=== PATIENT | female | born 1940 | race Caucasian/White ===

== ENCOUNTER 2020-12-29 16:17 | Inpatient (IN) | payer MEDICARE, MEDICAID, SELFPAY ==
[2020-12-29] VITALS (8 sets, daily range): BP systolic 102–132; BP diastolic 60–77; PULSE 83–95; RESP 18–26; TEMP 36.9–37; O2SAT 91–97; BMI 25.0; BMI 22.1
--- NOTE | 2020-12-29 16:32 | ED_ITS ---
HPI - SOB/Dyspnea General: Chief Complaint: COVID symptoms Stated Complaint: LOW O2 SAT, COVID Time Seen by Provider: 12/29/20 16:32 History of Present Illness: HPI Narrative: Ms. Tejeda is a 80-year-old lady with, per chart review, history of diabetes and dementia who presents to the emergency department due to respiratory distress. The patient does not provide meaningful supplemental history and history is otherwise limited due to patient's mental status. Review of Systems Narrative: Unable to obtain due to altered mental status [facility] ED PFSH: Medical History (Updated 12/30/20 @ 02:15 by Lauren Stafford MD) Anxiety Atrial fibrillation Congestive heart failure Dementia Diabetes Hypercholesterolemia Major depressive disorder Malaria Polymyalgia rheumatica Postherpetic polyneuropathy Surgical History (Updated 12/30/20 @ 02:34 by Lauren Stafford MD) History of cholecystectomy History of hysterectomy History of tubal ligation Social History (Updated 12/30/20 @ 02:00 by Lauren Stafford MD) Housing: Custodial Marital status: / Marital status details: of cancer 11/2020 Physical Exam Narrative: EXAM NARRATIVE: GENERAL/CONSTITUTIONAL -moderately ill-appearing. No acute distress. Eyes - PERRL, no conjunctival injection ENMT - Atraumatic external nose and ears. Moist mucous membranes NECK - supple. trachea midline CARDIOVASCULAR - regular rate and rhythm. Peripheral pulses 2+ and equal RESPIRATORY -coarse breath sounds to auscultation bilaterally. No retractions or accessory muscle use. ABDOMEN/GI - Nontender to deep palpation/Nondistended. MSK - Extremities without obvious deformity or tenderness to palpation SKIN -pale, Dry NEURO -moves all extremities spontaneously. Unable to perform full neurologic exam given baseline mental status. PSYCH -impaired cognition and memory. Course ED course: - Patient was seen and evaluated by me at bedside - Patient placed on cardiac monitors, IV access obtained - Initial evaluation notable for ill appearance, altered mental status - Labs notable for mild leukocytosis, hematologic or metabolic abnormality to explain the patient's symptoms. Procalcitonin elevated. Pneumonia treatment ordered - Imaging notable for no intracranial hemorrhage or mass. Patchy infiltrate noted on chest x-ray. - Upon serial reexamination after treatment the patient was similar - Based on patient history, evaluation, labs, and imaging as interpreted the most likely cause of the patient's condition is bacterial pneumonia - The results of ED evaluation were discussed with the patient including plan for admission due to requirement for level of care not available if discharged to prevent significant worsening/deterioration. -Hospitalist service consulted and agreed to admit the patient. - Patient was admitted without further deterioration or significant events. Vital Signs: Vital signs: Vital Signs Temperature 98.1 F 12/31/20 04:00 Pulse Rate 60 12/31/20 04:00 Respiratory Rate 20 H 12/31/20 04:00 Blood Pressure 118/77 12/31/20 04:00 Pulse Oximetry 92 12/31/20 04:00 MDM - SOB/Dyspnea Medical Records: Attestation: I reviewed the patient's medical records. Lab Data: Attestation: I reviewed the patient's lab results. Labs: Lab Results 12/29/20 12/29/20 12/29/20 Range/Units 16:54 17:00 17:00 WBC 11.2 H (4.0-10.0) 10^3/ uL RBC 4.18 (4.1-5.3) 10^6/u L Hgb 12.2 (11.5-15.3) g/dL Hct 36.7 L (37.0-47.0) % MCV 87.8 (81-99) fl MCH 29.2 (28.0-34.0) pg MCHC 33.2 (30.0-36.0) g/dL RDW 16.3 H (12.1-15.1) % Plt Count 237 (130-400) 10^3/c mm MPV 11.8 H (7.4-10.4) fL Neut % (Auto) 85.4 % Lymph % (Auto) 10.4 % [place] % (Auto) 3.5 % Eos % (Auto) 0.1 % Baso % (Auto) 0.1 % Neut # (Auto) 9.54 H (1.8-7.7) 10^3/u L Lymph # (Auto) 1.2 (0.8-4.8) 10^3/u L [place] # (Auto) 0.4 (0.2-0.9) 10^3/u L Eos # (Auto) 0.0 (0.0-0.8) 10^3/u L Baso # (Auto) 0.0 (0.0-0.1) 10^3/u L Nucleated RBC % (a uto) 0 % Nucleated RBCs # 0.0 /100WBC Specimen Type Sample Site ABG pH (7.35-7.45) ABG pCO2 (35-45) mmHg ABG pO2 (80.0-100.0) mmH g ABG HCO3 (22-26) mmol/L ABG Base Excess (-2.0-2.0) mmol/ L Cesar Test Hematocrit (37-47) % Hgb O2 Saturation (95-100) % Carboxyhemoglobin (0.4-20.1) %THgb Methemoglobin (0.4-1.5) % Total Hemoglobin (12-16) g/dL O2 Delivery Device O2 Liters/Min % Flexo Operator ID Sodium 141 (136-145) mmol/L Potassium 4.3 (3.5-5.1) mmol/L Chloride 103 (98-107) mmol/L Carbon Dioxide 24 (22-29) mmol/L Anion Gap 18.3 (5-19) BUN 44 H (8-23) mg/dL Creatinine 1.0 H (0.5-0.9) mg/dL GFR Calculation Not Reportable Glucose 103 (65-115) mg/dL POC Glucose 195 H (70-110) mg/dL Calculated Osmolal ity 303 H (285-295) mOsm/k g Lactic Acid (0.5-2.2) mmol/L Calcium 8.2 L (8.5-10.5) mg/dL Total Bilirubin 0.6 (0.15-1.2) mg/dL AST 33 H (0-32) U/L ALT 14 (0-33) U/L Alkaline Phosphata se 85 (35-105) IU/L Troponin T Baselin e (0-10) ng/L Troponin T 120 Min [place] (0-10) ng/L Delta Troponin T (0-10) ABS# C-Reactive Protein (0.0-4.9) mg/L NT-Pro-B Natriuret Pep 08613 H (0-450) pg/mL Total Protein 5.9 L (6.6-8.7) g/dL Albumin 3.1 L (3.5-5.2) g/dL Globulin 2.8 (1.3-4.6) g/dL Procalcitonin (0-0.5) ng/mL Nasal/Oral COVID-1 9 PCR SARS-CoV-2 Ag (Rap id) (Negative) 12/29/20 12/29/20 12/29/20 Range/Units 17:00 17:00 17:00 WBC (4.0-10.0) 10^3/ uL RBC (4.1-5.3) 10^6/u L Hgb (11.5-15.3) g/dL Hct (37.0-47.0) % MCV (81-99) fl MCH (28.0-34.0) pg MCHC (30.0-36.0) g/dL RDW (12.1-15.1) % Plt Count (130-400) 10^3/c mm MPV (7.4-10.4) fL Neut % (Auto) % Lymph % (Auto) % [place] % (Auto) % Eos % (Auto) % Baso % (Auto) % Neut # (Auto) (1.8-7.7) 10^3/u L Lymph # (Auto) (0.8-4.8) 10^3/u L [place] # (Auto) (0.2-0.9) 10^3/u L Eos # (Auto) (0.0-0.8) 10^3/u L Baso # (Auto) (0.0-0.1) 10^3/u L Nucleated RBC % (a uto) % Nucleated RBCs # /100WBC Specimen Type Sample Site ABG pH (7.35-7.45) ABG pCO2 (35-45) mmHg ABG pO2 (80.0-100.0) mmH g ABG HCO3 (22-26) mmol/L ABG Base Excess (-2.0-2.0) mmol/ L Cesar Test Hematocrit (37-47) % Hgb O2 Saturation (95-100) % Carboxyhemoglobin (0.4-20.1) %THgb Methemoglobin (0.4-1.5) % Total Hemoglobin (12-16) g/dL O2 Delivery Device O2 Liters/Min % Flexo Operator ID Sodium (136-145) mmol/L Potassium (3.5-5.1) mmol/L Chloride (98-107) mmol/L Carbon Dioxide (22-29) mmol/L Anion Gap (5-19) BUN (8-23) mg/dL Creatinine (0.5-0.9) mg/dL GFR Calculation Glucose (65-115) mg/dL POC Glucose (70-110) mg/dL Calculated Osmolal ity (285-295) mOsm/k g Lactic Acid 1.2 (0.5-2.2) mmol/L Calcium (8.5-10.5) mg/dL Total Bilirubin (0.15-1.2) mg/dL AST (0-32) U/L ALT (0-33) U/L Alkaline Phosphata se (35-105) IU/L Troponin T Baselin e 89 H (0-10) ng/L Troponin T 120 Min [place] (0-10) ng/L Delta Troponin T (0-10) ABS# C-Reactive Protein 199.6 H (0.0-4.9) mg/L NT-Pro-B Natriuret Pep (0-450) pg/mL Total Protein (6.6-8.7) g/dL Albumin (3.5-5.2) g/dL Globulin (1.3-4.6) g/dL Procalcitonin 0.92 H (0-0.5) ng/mL Nasal/Oral COVID-1 9 PCR SARS-CoV-2 Ag (Rap id) (Negative) 12/29/20 12/29/20 12/29/20 Range/Units 17:02 17:02 17:29 WBC (4.0-10.0) 10^3/ uL RBC (4.1-5.3) 10^6/u L Hgb (11.5-15.3) g/dL Hct (37.0-47.0) % MCV (81-99) fl MCH (28.0-34.0) pg MCHC (30.0-36.0) g/dL RDW (12.1-15.1) % Plt Count (130-400) 10^3/c mm MPV (7.4-10.4) fL Neut % (Auto) % Lymph % (Auto) % [place] % (Auto) % Eos % (Auto) % Baso % (Auto) % Neut # (Auto) (1.8-7.7) 10^3/u L Lymph # (Auto) (0.8-4.8) 10^3/u L [place] # (Auto) (0.2-0.9) 10^3/u L Eos # (Auto) (0.0-0.8) 10^3/u L Baso # (Auto) (0.0-0.1) 10^3/u L Nucleated RBC % (a uto) % Nucleated RBCs # /100WBC Specimen Type Arterial Sample Site Radial, left ABG pH 7.48 H (7.35-7.45) ABG pCO2 30.7 L (35-45) mmHg ABG pO2 62.9 L (80.0-100.0) mmH g ABG HCO3 22.6 (22-26) mmol/L ABG Base Excess -0.2 (-2.0-2.0) mmol/ L Cesar Test Pos Hematocrit 37.1 (37-47) % Hgb O2 Saturation 92.0 L (95-100) % Carboxyhemoglobin 0.7 (0.4-20.1) %THgb Methemoglobin 0.9 (0.4-1.5) % Total Hemoglobin 12.1 (12-16) g/dL O2 Delivery Device Nrb O2 Liters/Min 15.0 % Flexo Operator ID Cak Sodium (136-145) mmol/L Potassium (3.5-5.1) mmol/L Chloride (98-107) mmol/L Carbon Dioxide (22-29) mmol/L Anion Gap (5-19) BUN (8-23) mg/dL Creatinine (0.5-0.9) mg/dL GFR Calculation Glucose (65-115) mg/dL POC Glucose (70-110) mg/dL Calculated Osmolal ity (285-295) mOsm/k g Lactic Acid (0.5-2.2) mmol/L Calcium (8.5-10.5) mg/dL Total Bilirubin (0.15-1.2) mg/dL AST (0-32) U/L ALT (0-33) U/L Alkaline Phosphata se (35-105) IU/L Troponin T Baselin e (0-10) ng/L Troponin T 120 Min [place] (0-10) ng/L Delta Troponin T (0-10) ABS# C-Reactive Protein (0.0-4.9) mg/L NT-Pro-B Natriuret Pep (0-450) pg/mL Total Protein (6.6-8.7) g/dL Albumin (3.5-5.2) g/dL Globulin (1.3-4.6) g/dL Procalcitonin (0-0.5) ng/mL Nasal/Oral COVID-1 9 PCR Detected H SARS-CoV-2 Ag (Rap id) Positive H (Negative) 12/29/20 Range/Units 19:24 WBC (4.0-10.0) 10^3/ uL RBC (4.1-5.3) 10^6/u L Hgb (11.5-15.3) g/dL Hct (37.0-47.0) % MCV (81-99) fl MCH (28.0-34.0) pg MCHC (30.0-36.0) g/dL RDW (12.1-15.1) % Plt Count (130-400) 10^3/c mm MPV (7.4-10.4) fL Neut % (Auto) % Lymph % (Auto) % [place] % (Auto) % Eos % (Auto) % Baso % (Auto) % Neut # (Auto) (1.8-7.7) 10^3/u L Lymph # (Auto) (0.8-4.8) 10^3/u L [place] # (Auto) (0.2-0.9) 10^3/u L Eos # (Auto) (0.0-0.8) 10^3/u L Baso # (Auto) (0.0-0.1) 10^3/u L Nucleated RBC % (a uto) % Nucleated RBCs # /100WBC Specimen Type Sample Site ABG pH (7.35-7.45) ABG pCO2 (35-45) mmHg ABG pO2 (80.0-100.0) mmH g ABG HCO3 (22-26) mmol/L ABG Base Excess (-2.0-2.0) mmol/ L Cesar Test Hematocrit (37-47) % Hgb O2 Saturation (95-100) % Carboxyhemoglobin (0.4-20.1) %THgb Methemoglobin (0.4-1.5) % Total Hemoglobin (12-16) g/dL O2 Delivery Device O2 Liters/Min % Flexo Operator ID Sodium (136-145) mmol/L Potassium (3.5-5.1) mmol/L Chloride (98-107) mmol/L Carbon Dioxide (22-29) mmol/L Anion Gap (5-19) BUN (8-23) mg/dL Creatinine (0.5-0.9) mg/dL GFR Calculation Glucose (65-115) mg/dL POC Glucose (70-110) mg/dL Calculated Osmolal ity (285-295) mOsm/k g Lactic Acid (0.5-2.2) mmol/L Calcium (8.5-10.5) mg/dL Total Bilirubin (0.15-1.2) mg/dL AST (0-32) U/L ALT (0-33) U/L Alkaline Phosphata se (35-105) IU/L Troponin T Baselin e (0-10) ng/L Troponin T 120 Min [place] 81.19 H (0-10) ng/L Delta Troponin T -7.81 L (0-10) ABS# C-Reactive Protein (0.0-4.9) mg/L NT-Pro-B Natriuret Pep (0-450) pg/mL Total Protein (6.6-8.7) g/dL Albumin (3.5-5.2) g/dL Globulin (1.3-4.6) g/dL Procalcitonin (0-0.5) ng/mL Nasal/Oral COVID-1 9 PCR SARS-CoV-2 Ag (Rap id) (Negative) EKG Data^: EKG 1: Attestation: I personally reviewed and interpreted this EKG as follows: EKG Interpretation Date: 12/29/20 EKG interpretation time: 16:55 Prior EKG tracings: not available for review Interpretation: Twelve-lead EKG shows a regular sinus rhythm at a rate of 96. KY interval 136, QRS duration 86, QTc 466. Normal axis. Interpretation: Sinus rhythm. Ectopy. EKG 2: Attestation: I personally reviewed and interpreted this EKG as follows: EKG Interpretation Date: 12/29/20 EKG interpretation time: 18:50 Prior EKG tracings: available for review Interpretation: Twelve-lead EKG shows a regular sinus rhythm at a rate of 92. [place] interval 136, QRS duration 87, QTc 474 Normal axis. Interpretation: Sinus rhythm. Multifocal ectopy. 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
--- NOTE | 2020-12-29 16:43 | CTR_ITS ---
PROCEDURE INFORMATION: Exam: CT Head Without Contrast Exam date and time: 12/29/2020 4:43 PM Age: 80 years old Clinical indication: Altered mental status/memory loss; Confusion or disorientation; Additional info: AMS TECHNIQUE: Imaging protocol: Computed tomography of the head without contrast. Radiation optimization: All CT scans at this facility use at least one of these dose optimization techniques: automated exposure control; mA and/or kV adjustment per patient size (includes targeted exams where dose is matched to clinical indication); or iterative reconstruction. COMPARISON: No relevant prior studies available. RADIATION DOSE METRICS: Total DLP (mGy-cm): 882.93 FINDINGS: Brain: No hemorrhage. No cerebral edema. Mild low-attenuation signal within subcortical and deep white matter tracts suggestive of chronic small vessel ischemic disease. Moderate diffuse cerebral atrophy. No mass effect or midline shift. Cerebral ventricles: No ventriculomegaly. Paranasal sinuses: Visualized sinuses are unremarkable. No fluid levels. Mastoid air cells: Visualized mastoid air cells are well aerated. Bones/joints: Unremarkable. No acute fracture. Soft tissues: Unremarkable. CT/CT head wo con* [id number] IMPRESSION: 1. No acute intracranial abnormality. 2. Moderate diffuse cerebral atrophy and suspected mild sequela of chronic small vessel ischemic disease. Radiation Dose CTDIVOL = (mGy): DLP = 882.93 (mGy-cm)
--- NOTE | 2020-12-29 16:43 | XRR_ITS ---
PROCEDURE INFORMATION: Exam: XR Chest Exam date and time: 12/29/2020 4:43 PM Age: 80 years old Clinical indication: Shortness of breath; Additional info: AMS, covid? TECHNIQUE: Imaging protocol: XR of the chest. Views: 1 view. COMPARISON: No relevant prior studies available. FINDINGS: Lungs: Patulous consolidations throughout both lungs. Hyperinflated lungs. Pleural spaces: Blunting of the costophrenic angles favored secondary to scarring or trace effusions. No pneumothorax. Heart/Mediastinum: Mild cardiomegaly. Bones/joints: Unremarkable. XR/XR chest 1V portable [id number] IMPRESSION: 1. Patulous consolidations throughout both lungs suspicious for multifocal pneumonia. 2. Mild cardiomegaly.
--- NOTE | 2020-12-29 16:44 | ECG_ITS ---
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 Measurements Intervals [place] Rate: 96 P: 42 PA: 136 QRS: 28 QRSD: 86 T: 45 QT: 368 QTc: 466 Interpretive Statements SINUS RHYTHM WITH FREQUENT VENTRICULAR PREMATURE COMPLEXES POSSIBLE LEFT ATRIAL ENLARGEMENT [-0.1mV P-WAVE IN V1/V2] ST DEVIATION AND MODERATE T-WAVE ABNORMALITY, CONSIDER ANTERIOR ISCHEMIA [-0.1+ mV T-WAVE IN V3/V4] No previous ECG available for comparison Electronically Signed On 12-30-2020 12:45:50 CDT by Lita Dover M.D. [email or web address] regional medical [email or web address]/[id number]
[2020-12-29 16:59] LABS: Glucose Point of Care 195 mg/dL (70-110)
[2020-12-29 17:28] LABS: Basophils % 0.1 %; Eosinophils % 0.1 %; Hematocrit 36.7 % (37.0-47.0); Hemoglobin 12.2 g/dL (11.5-15.3); Lymphocytes # 1.2 10^3/uL (0.8-4.8); Lymphocytes % 10.4 %; Mean Corpuscular HGB Conc 33.2 g/dL (30.0-36.0); Mean Corpuscular Hemoglobin 29.2 pg (28.0-34.0); Mean Corpuscular Volume 87.8 fl (81-99); Mean Platelet Volume 11.8 fL (7.4-10.4); Monocytes # 0.4 10^3/uL (0.2-0.9); Monocytes % 3.5 %; Neutrophils # 9.54 10^3/uL (1.8-7.7); Neutrophils % 85.4 %; Nucleated Red Blood Cells % 0 %; Platelet Count 237 10^3/cmm (130-400); Red Blood Count 4.18 10^6/uL (4.1-5.3); Red Cell Distribution Width 16.3 % (12.1-15.1); White Blood Count 11.2 10^3/uL (4.0-10.0)
--- NOTE | 2020-12-29 17:30 | PC.NURSE ---
entered orientation in error. patient is alert to person and place and has history of dementia
[2020-12-29 17:41] LABS: ABG PCO2 30.7 mmHg (35-45); ABG PH Result 7.48 (7.35-7.45); Arterial Blood Gas Hematocrit 37.1 % (37-47); Base Excess ABG -0.2 mmol/L (-2.0-2.0); Blood Gas Allen Test Pos; Blood Gas Operator Identificat CAK; Blood Gas Sample Site Radial, left; Blood Gas Sample Type Arterial; Carboxyhemoglobin 0.7 %THgb (0.4-20.1); HCO3 ABG 22.6 mmol/L (22-26); Methemoglobin 0.9 % (0.4-1.5); Oxygen Device NRB; PO2 ABG 62.9 mmHg (80.0-100.0); Total Hemoglobin 12.1 g/dL (12-16)
[2020-12-29 18:12] LABS: Lactic Sepsis W/Reflex 1.2 mmol/L (0.5-2.2)
[2020-12-29 18:17] LABS: Slide Review Slide Review Perform
[2020-12-29 18:19] LABS: Troponin(5th) Baseline 89 ng/L (0-10)
[2020-12-29 18:24] LABS: Alanine Aminotransferase 14 U/L (0-33); Albumin Level 3.1 g/dL (3.5-5.2); Alkaline Phosphatase 85 IU/L (35-105); Anion Gap 18.3 (5-19); Aspartate Amino Transferase 33 U/L (0-32); Blood Urea Nitrogen 44 mg/dL (8-23); Calcium 8.2 mg/dL (8.5-10.5); Carbon Dioxide 24 mmol/L (22-29); Chloride 103 mmol/L (98-107); Globulin 2.8 g/dL (1.3-4.6); Glucose 103 mg/dL (65-115); NT Pro B Type Natriuretic Pept 17895 pg/mL (0-450); Osmolality Calculated 303 mOsm/kg (285-295); Potassium 4.3 mmol/L (3.5-5.1); Sodium 141 mmol/L (136-145); Total Bilirubin 0.6 mg/dL (0.15-1.2); Total Protein 5.9 g/dL (6.6-8.7)
--- NOTE | 2020-12-29 18:44 | ECG_ITS ---
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 Measurements Intervals [place] Rate: 92 P: 52 MO: 136 QRS: 33 QRSD: 87 T: 0 QT: 382 QTc: 474 Interpretive Statements SINUS RHYTHM WITH FREQUENT VENTRICULAR PREMATURE COMPLEXES NONSPECIFIC ST & T-WAVE ABNORMALITY Compared to ECG 12/29/2020 16:50:33 Possible ischemia no longer present T-wave abnormality still present Electronically Signed On 12-30-2020 12:50:02 CDT by Lita Dover M.D. [id number]
[2020-12-29] MEDS: sodium chloride 0.9% 500 ML 999 ML IV (18:58)
[2020-12-29 18:59] LABS: SARS Covid-2 Antigen Positive (Negative)
[2020-12-29 19:21] LABS: C Reactive Protein 199.6 mg/L (0.0-4.9)
[2020-12-29 19:25] LABS: Procalcitonin 0.92 ng/mL (0-0.5)
[2020-12-29 20:00] LABS: Troponin 5 2HR 81.19 ng/L (0-10)
[2020-12-29] MEDS: cefTRIAXone 1,000 MG in sodium chloride 0.9% (plus) 50 ML 100 MG IV (20:00)
[2020-12-29] MEDS: doxycycline 100 MG in sodium chloride 0.9% (plus) 100 ML IV (20:21)
[2020-12-29 20:24] LABS: Urine Color Yellow (Yellow); pH Urine 5 (5-7)
[2020-12-29 20:25] LABS: Add Urine Microscopic? YES; Bilirubin Urine 1+ (Negative); Blood Urine Neg (Negative); Glucose Urine UA Norm (Normal); Ketones Urine 1+ (Negative); Leukocyte Esterase Urine Trace (Negative); Nitrate Urine Positive (Negative); Protein Urine 1+ (Negative); Urobilinogen Urine 1 mg/dL (Negative)
[2020-12-29 20:32] LABS: Amorphous Sediment Urine 1+ /hpf; Bacteria Urine 3+ /hpf; Mucus Urine 1+ /hpf; RBC Urine 0-4 /hpf (0-2)
[2020-12-29 20:33] LABS: Add Urine Culture? Yes
--- NOTE | 2020-12-29 20:37 | PC.NURSE ---
patient eating a sandwich
--- NOTE | 2020-12-29 20:55 | P.HP_ITS ---
Providers/Chief Complaint Admitting Physician: Lauren Stafford MD Primary Care Provider: Lety Rivera MD Chief Complaint: LOW O2 SAT, COVID History of Present Illness Tracie Tejeda is a 80 year old female who presented from [facility] for evaluation. She had tested positive for Covid on December 28. Exactly what other than the positive test prompted visit to the emergency room I am not certain however on arrival here she was on a nonrebreather placed by EMS. Patient herself is not able to provide any details of history. She does admit that she hurts all over. She is short of breath. Her mouth is dry. Not able to get much else from her. Facility has no record of her having received Covid vaccine. Here she had pulmonary findings consistent with Covid. Urinalysis was also abnormal although with some squamous cells noted. Procalcitonin was slightly elevated. She was covered empirically with antibiotics. She received some IV fluids in the emergency room. Given oxygen requirement she is being admitted for further treatment. Attempts to change her from nonrebreather have been unsuccessful as she is not tolerating nasal cannula which she constantly pulls off her face. When she does her oxygen saturations dropped into the 80s, occasionally the 70s. History below is obtained from nursing facility records Review of Systems General: Reports: ROS unobtainable due to medical condition and ROS unobtainable due to mental status Medications/Allergies Home Medications Medication Instructions Recorded Confirmed Last Taken Type acetaminophen 325 mg PO QID PRN 12/29/20 12/29/20 12/29/20 History amlodipine 2.5 mg PO DAILY@0800 12/29/20 12/29/20 12/29/20 History atorvastatin 20 mg PO DAILY@1700 12/29/20 12/29/20 12/28/20 History insulin NPH and regular human See Rx Instructions .ROUTE .COMPLEX 12/29/20 12/29/20 12/25/20 History [Humulin 70/30 U-100 KwikPen] insulin glargine [Lantus Solostar 6 unit SUBCUT DAILY@0700 12/29/20 12/29/20 12/29/20 07:00 History U-100 Insulin] isosorbide mononitrate 30 mg PO DAILY@0800 12/29/20 12/29/20 12/28/20 History losartan 50 mg PO DAILY@0800 12/29/20 12/29/20 12/29/20 History metformin 500 mg PO BID@0700,1700 12/29/20 12/29/20 12/29/20 History mirtazapine 15 mg PO BEDTIME@199912/29/20 12/29/20 12/28/20 History Allergies Allergy/AdvReac Type Severity Reaction Status Date / Time ibuprofen Allergy Unknown Verified 12/29/20 16:40 lansoprazole Allergy Unknown Verified 12/29/20 16:40 naproxen Allergy Unknown Verified 12/29/20 16:40 pravastatin Allergy Unknown Verified 12/29/20 16:40 PFSH Acute PFSH: Medical History (Updated 12/30/20 @ 02:15 by Lauren Stafford MD) Anxiety Atrial fibrillation Congestive heart failure Dementia Diabetes Hypercholesterolemia Major depressive disorder Malaria Polymyalgia rheumatica Postherpetic polyneuropathy Surgical History (Updated 12/30/20 @ 02:34 by Lauren Stafford MD) History of cholecystectomy History of hysterectomy History of tubal ligation Social History (Updated 12/30/20 @ 02:00 by Lauren Stafford MD) Housing: [facility] Marital status: / Marital status details: of cancer 11/2020 Supplemental PFSH Information: unable to obtain further or confirm medical, surgical, family or social history due to patient condition/cognition Vitals/I&O/Wt Last Vital Signs Temp 98.6 F 12/29/20 16:33 Pulse 95 12/29/20 20:54 Resp 20 H 12/29/20 20:54 BP 103/67 12/29/20 20:54 Pulse Ox 95 12/29/20 20:54 12/29/20 12/29/20 12/29/20 06:59 14:59 22:59 Intake Total 50 / 50 Balance 50 / 50 Weight last 48 hrs Weight 68.039 kg Physical Exam Narrative: EXAM NARRATIVE: Constitutional: alert, oriented to person most of the time, ill appearing HEENT: normocephalic, conjunctiva injected, rhinorrhea, dry membranes Neck: supple Respiratory: No wheezes, right-sided crackles, tachypnea, does not keep mask on without some encouragement, supraclavicular retractions and mild intercostal retractions Cardiovascular: Irregular, no murmurs Abdomen: soft, non tender, positive bowel sounds : No Bryant Extremities: no edema, no cyanosis Skin: dry, no rashes or bruising Neuro: face symmetric, speech clear, moves all extremities Psych: Requires redirection Data : 12/29/20 17:00 12/29/20 17:00 Micro: Microbiology 12/29/20 19:24 Blood Culture - Preliminary Blood SPECIMEN COLLECTED 12/29/20 17:00 Blood Culture - Preliminary Blood SPECIMEN COLLECTED Other data: .. A&P Assessment and plan (1) Pneumonia due to COVID-19 virus: Status: Acute (2) COVID-19 vaccine dose not administered: Status: Acute (3) UTI (urinary tract infection): Status: Acute Qualifiers: Urinary tract infection type: acute pyelonephritis Qualified Code(s): N10 - Acute pyelonephritis (4) Dementia: Status: Chronic Qualifiers: Dementia type: unspecified type Dementia behavioral disturbance: without behavioral disturbance Qualified Code(s): F03.90 - Unspecified dementia without behavioral disturbance (5) Congestive heart failure: Status: Chronic Qualifiers: Heart failure type: unspecified Heart failure chronicity: chronic Qualified Code(s): I50.9 - Heart failure, unspecified (6) Atrial fibrillation: Status: Chronic Qualifiers: Atrial fibrillation type: unspecified chronic Qualified Code(s): I48.20 - Chronic atrial fibrillation, unspecified (7) Diabetes: Status: Chronic Qualifiers: Diabetes mellitus type: type 2 Diabetes mellitus retirement insulin use: with 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 Diabetes mellitus complication status: with hyperglycemia Qualified Code(s): E11.65 - Type 2 diabetes mellitus with hyperglycemia; Z79.4 - [facility] (current) use of insulin Additional A&P Information Inpatient admission Initiate dexamethasone and remdesivir Oxygen therapy as needed to maintain saturations and that she will keep n Respiratory therapy to follow Albuterol Pro calcitonin 0.92 CRP 199.6 BNP 28184 Check D dimer, ck, coags, ferritin Serial cardiac enzymes Blood cultures were collected Bacterial antigens Urine culture Zosyn and azithromycin Monitor volume status Continue a lower dose of home ARB as BP tolerates Continue home statin Sliding scale insulin and long acting for diabetes Re-evaluate in morning regarding ability to take oral intake, currently not able to take off NRB and not tolerating nasal canula so have kept npo except sips and chips, medications Lovenox and scds for DVT prophylaxis Supportive care otherwise of cancer at the end of November and was recently buried Currently anticipate discharge back to SNF if survives, likely with oxygen therapy Patient not able to participate in discusison regarding treatment Full code Attestations Medical Necessity Statement*: Anticipate stay greater than 2 midnights in patient with covid, requiring oxygen and other care as noted above. At high risk of rapid clinical decline including for reasons noted above. Coding Level of Care Code Acute Sales Department Manager for g Fwd Diagnoses Pneumonia due to COVID-19 virus U07.1; J12.82 COVID-19 vaccine dose not administered Z28.9 UTI (urinary tract infection) N10 Urinary tract infection type: acute pyelonephritis Dementia F03.90 Dementia type: unspecified type Dementia behavioral disturbance: without behavioral disturbance Congestive heart failure I50.9 Heart failure type: unspecified Heart failure chronicity: chronic Atrial fibrillation I48.20 Atrial fibrillation type: unspecified chronic Diabetes E11.65; Z79.4 Diabetes mellitus type: type 2 Diabetes mellitus retirement insulin use: with retirement use Diabetes mellitus complication status: with hyperglycemia
--- NOTE | 2020-12-29 21:04 | PC.NURSE ---
report to Merari CRUZ
--- NOTE | 2020-12-29 22:44 | ECG_ITS ---
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 Measurements Intervals [place] Rate: 86 P: 55 ID: [id number] QRS: 38 QRSD: 86 T: 34 QT: 392 QTc: 469 Interpretive Statements SINUS RHYTHM WITH OCCASIONAL VENTRICULAR PREMATURE COMPLEXES WITH OCCASIONAL SUPRAVENTRICULAR PREMATURE COMPLEXES NONSPECIFIC ST & T-WAVE ABNORMALITY Compared to ECG 12/29/2020 18:45:14 No significant changes Electronically Signed On 01-01-2021 19:37:27 CDT by Celi Coleman M.D. [email or web address] medical [email or web address] Technologymemorial health system [email or web address].[id number]
[2020-12-29 23:13] LABS: Troponin 5 6HR 77.77 ng/L (0-10)
[2020-12-29 23:17] LABS: Troponin 5 6HR Delta -11.23 ng/L (0-12)
[2020-12-30] VITALS (14 sets, daily range): BP systolic 98–125; BP diastolic 52–82; PULSE 74–92; RESP 16–24; TEMP 36.1–37.1; O2SAT 86–94
[2020-12-30] MEDS: famotidine 20 mg/2 mL INJ IVP ×2 (03:57→14:02)
[2020-12-30] MEDS: dexamethasone 4 mg/mL INJ 6 MG IVP (03:57)
[2020-12-30] MEDS: enoxaparin 40 mg/0.4 mL Syringe SUBCUT (03:57)
[2020-12-30] MEDS: remdesivir 200 MG in sodium chloride 0.9% (100 ml) 100 ML 100 MG IV (03:57)
[2020-12-30] MEDS: acetaminophen 325 mg Tablet 650 MG PO ×2 (04:10→14:32)
[2020-12-30] MEDS: azithromycin 500 MG in sodium chloride 0.9% 250 ML 250 MG IV (05:05)
[2020-12-30 05:36] LABS: Glucose Point of Care 117 mg/dL (70-110)
[2020-12-30] MEDS: piperacillin-tazobactam 3.375 GM in sodium chloride 0.9% (plus) 50 ML IV ×3 (06:11→22:25)
[2020-12-30] MEDS: benzonatate 100 mg Capsule PO (08:00)
[2020-12-30] MEDS: docusate sodium 100 mg Capsule PO ×2 (08:00→17:16)
[2020-12-30 08:08] LABS: Glucose Point of Care 189 mg/dL (70-110)
[2020-12-30] MEDS: losartan 50 mg Tablet 25 MG PO (09:17)
[2020-12-30 11:44] LABS: Glucose Point of Care 113 mg/dL (70-110)
[2020-12-30 14:33] LABS: Hematocrit 36.2 % (37.0-47.0); Hemoglobin 11.7 g/dL (11.5-15.3); Lymphocytes # 0.7 10^3/uL (0.8-4.8); Lymphocytes % 11.6 %; Mean Corpuscular HGB Conc 32.3 g/dL (30.0-36.0); Mean Corpuscular Hemoglobin 28.5 pg (28.0-34.0); Mean Corpuscular Volume 88.3 fl (81-99); Mean Platelet Volume 11.4 fL (7.4-10.4); Monocytes # 0.1 10^3/uL (0.2-0.9); Monocytes % 1.3 %; Neutrophils # 5.24 10^3/uL (1.8-7.7); Neutrophils % 86.6 %; Nucleated Red Blood Cells % 0 %; Platelet Count 256 10^3/cmm (130-400); Positive M 1; Red Cell Distribution Width 16.3 % (12.1-15.1); White Blood Count 6.1 10^3/uL (4.0-10.0)
[2020-12-30 15:04] LABS: Alanine Aminotransferase 16 U/L (0-33); Albumin Level 2.5 g/dL (3.5-5.2); Alkaline Phosphatase 85 IU/L (35-105); Blood Urea Nitrogen 33 mg/dL (8-23); C Reactive Protein 154.1 mg/L (0.0-4.9); Calcium 8.3 mg/dL (8.5-10.5); Carbon Dioxide 19 mmol/L (22-29); Chloride 106 mmol/L (98-107); Creatine Phosphokinase 89 U/L (26-192); Globulin 3.5 g/dL (1.3-4.6); Glucose 107 mg/dL (65-115); Magnesium 2.2 mg/dL (1.7-2.3); Osmolality Calculated 294 mOsm/kg (285-295); Phosphorus 3.3 mg/dL (2.5-4.5); Sodium 138 mmol/L (136-145); Total Bilirubin 0.3 mg/dL (0.15-1.2)
--- NOTE | 2020-12-30 15:04 | PM.PN ---
Subjective Subjective: Interval history: She is resting. Wakes up to voice. When asked if anything is bothering her replies, nothing until now other than you. Denies pain or discomfort. Denies chest pain or pressure. Says breathing currently is comfortable. Denies excessive cough. He denies nausea vomiting or diarrhea. He is not oriented to place or year. Vitals/I&O/Wt Last Vital Signs Temp 98.1 F 12/30/20 12:00 Pulse 77 12/30/20 12:00 Resp 17 12/30/20 12:00 BP 103/52 12/30/20 12:00 Pulse Ox 91 12/30/20 12:00 12/30/20 12/30/20 12/30/20 06:59 14:59 22:59 Intake Total 350 / 1000 50 / 50 Output Total 0 / 0 Balance 350 / 1000 50 / 50 Weight last 48 hrs Weight 60.328 kg Weight 68.039 kg Physical Exam Const: COMMON NORMALS: no acute distress; negative for patient oriented x3 EXAM LIMITATIONS: other limitations (Dementia) GENERAL APPEARANCE: cooperative, comfortable and frail appearing HENMT: COMMON NORMALS: oropharynx normal Neck/C-Spine: COMMON NORMALS: no JVD Resp: COMMON NORMALS: normal respiratory effort and clear to auscultation bilaterally AUSCULTATION: clear to auscultation bilaterally Cardio: COMMON NORMALS: no JVD, regular rhythm, S1 normal heart sound present, S2 normal heart sound present and No murmurs present (Cardio) RHYTHM: regular rhythm HEART SOUNDS: S1 normal heart sound present and S2 normal heart sound present GI: COMMON NORMALS: Normal to inspection, nondistended, normoactive bowel sounds present, Soft to palpation and non-tender PALPATION: Yes Soft to palpation Extremity: COMMON NORMALS: no joint enlargement and no pedal edema Neuro: COMMON NORMALS: moves all extremities; negative for patient oriented x3 Skin: COMMON NORMALS: no rashes or lesions noted GENERAL SKIN EXAM: no rashes or lesions noted Data : 12/30/20 14:10 12/30/20 14:10 Micro: Microbiology 12/29/20 19:24 Blood Culture - Preliminary Blood SPECIMEN COLLECTED 12/29/20 17:00 Blood Culture - Preliminary Blood SPECIMEN COLLECTED A&P Assessment and plan (1) Pneumonia due to COVID-19 virus: So far tolerating heated high flow cannula. During my visit she does not attempt to remove this. Continue oxygen support. Currently requiring 65% FiO2. Continue remdesivir, Decadron. Continue empiric antibiotic coverage with Zosyn, azithromycin for now. Continue DuoNeb as needed. Follow-up inflammatory marker, D-dimer. We have been unable to reach any family. Her has been recently . Her listed son's phone number has been disconnected. Daughter is listed as well, but no phone number provided. Spoke [facility], they have the phone number for the son listed as [phone]. I could not reach him on the phone number, but on the same number his answered ([id number]), with stated she is also listed as emergency contact at the snf. Requested phone number on facesheet to be updated. Status: Acute (2) COVID-19 vaccine dose not administered: [id number] confirms she had not had her COVID-19 vaccine. Status: Acute (3) UTI (urinary tract infection): Follow-up urine culture. Continue Zosyn. Status: Acute Qualifiers: Urinary tract infection type: acute pyelonephritis Qualified Code(s): N10 - Acute pyelonephritis (4) Dementia: Status: Chronic Qualifiers: Dementia type: unspecified type Dementia behavioral disturbance: without behavioral disturbance Qualified Code(s): F03.90 - Unspecified dementia without behavioral disturbance (5) Congestive heart failure: Status: Chronic Qualifiers: Heart failure type: unspecified Heart failure chronicity: chronic Qualified Code(s): I50.9 - Heart failure, unspecified (6) Atrial fibrillation: Status: Chronic Qualifiers: Atrial fibrillation type: unspecified chronic Qualified Code(s): I48.20 - Chronic atrial fibrillation, unspecified (7) Diabetes: Status: Chronic Qualifiers: Diabetes mellitus type: type 2 Diabetes mellitus shelter insulin use: with shelter use Diabetes mellitus complication status: with hyperglycemia Qualified Code(s): E11.65 - Type 2 diabetes mellitus with hyperglycemia; Z79.4 - shelter (current) use of insulin Attestations Medical Necessity Statement*: Continue admission for hypoxic respite failure secondary to severe COVID-19. Coding Level of Care Code Acute Paper Wood Cutter for [facility] Diagnoses Pneumonia due to COVID-19 virus U07.1; J12.82 COVID-19 vaccine dose not administered Z28.9 UTI (urinary tract infection) N10 Urinary tract infection type: acute pyelonephritis Dementia F03.90 Dementia type: unspecified type Dementia behavioral disturbance: without behavioral disturbance Congestive heart failure I50.9 Heart failure type: unspecified Heart failure chronicity: chronic Atrial fibrillation I48.20 Atrial fibrillation type: unspecified chronic Diabetes E11.65; Z79.4 Diabetes mellitus type: type 2 Diabetes mellitus shelter insulin use: with terminal operations manager use Diabetes mellitus complication status: with hyperglycemia
[2020-12-30 15:05] LABS: INR 0.98 (0.8-1.2)
[2020-12-30 15:07] LABS: Anion Gap 17.3 (5-19); Aspartate Amino Transferase 39 U/L (0-32); Lactate Dehydrogenase 361 U/L (135-214); Potassium 4.3 mmol/L (3.5-5.1)
[2020-12-30 15:20] LABS: Ferritin 1229 ng/mL (15-150)
[2020-12-30 16:03] LABS: D Dimer 3.72 ug/mIFEU (0-0.59)
[2020-12-30 16:19] LABS: Coronavirus Test Green County Detected
[2020-12-30 16:32] LABS: Glucose Point of Care 124 mg/dL (70-110)
[2020-12-30 16:40] LABS: Partial Thromboplastin Time 21.5 SECONDS (23.9-36.7)
--- NOTE | 2020-12-30 19:21 | PC.NURSE ---
Report to Jesenia Suazo RN at this time.
[2020-12-30 20:24] LABS: Glucose Point of Care 125 mg/dL (70-110)
[2020-12-30] MEDS: insulin glargine 100 units/1 mL 5 UNIT SUBCUT (21:44)
--- NOTE | 2020-12-30 21:50 | PC.NURSE ---
Patient did not receive bedtime medication, atorvastatin 20mg. Patient was asleep when this nurse entered the room, and when this nurse woke patient up patient would not tell this nurse her name or birthday. Neuro checks were done by this nurse and charge nurse to rule out change in neuro status. Patient would shake her head no when this nurse told her I had a nighttime medication to give her, so medication was not given. Patient does have a history of dementia.
[2020-12-31] VITALS (17 sets, daily range): BP systolic 103–129; BP diastolic 52–77; PULSE 60–83; RESP 17–24; TEMP 35.9–36.7; O2SAT 86–95
[2020-12-31] MEDS: famotidine 20 mg/2 mL INJ IVP ×2 (02:09→13:24)
[2020-12-31] MEDS: enoxaparin 40 mg/0.4 mL Syringe SUBCUT (02:09)
[2020-12-31] MEDS: dexamethasone 4 mg/mL INJ 6 MG IVP (02:12)
[2020-12-31] MEDS: azithromycin 500 MG in sodium chloride 0.9% 250 ML 250 MG IV (04:45)
[2020-12-31 05:16] LABS: Basophils % 0.1 %; Hematocrit 38.6 % (37.0-47.0); Hemoglobin 12.4 g/dL (11.5-15.3); Lymphocytes # 0.9 10^3/uL (0.8-4.8); Mean Corpuscular HGB Conc 32.1 g/dL (30.0-36.0); Mean Corpuscular Hemoglobin 28.2 pg (28.0-34.0); Mean Corpuscular Volume 87.7 fl (81-99); Mean Platelet Volume 11.2 fL (7.4-10.4); Monocytes # 0.4 10^3/uL (0.2-0.9); Monocytes % 3.3 %; Neutrophils # 11.87 10^3/uL (1.8-7.7); Nucleated Red Blood Cells % 0 %; Platelet Count 297 10^3/cmm (130-400); Red Cell Distribution Width 16.4 % (12.1-15.1); White Blood Count 13.3 10^3/uL (4.0-10.0)
[2020-12-31 05:34] LABS: Alanine Aminotransferase 16 U/L (0-33); Albumin Level 2.7 g/dL (3.5-5.2); Alkaline Phosphatase 127 IU/L (35-105); Anion Gap 21.5 (5-19); Aspartate Amino Transferase 24 U/L (0-32); Blood Urea Nitrogen 43 mg/dL (8-23); C Reactive Protein 122.2 mg/L (0.0-4.9); Calcium 8.8 mg/dL (8.5-10.5); Carbon Dioxide 20 mmol/L (22-29); Chloride 103 mmol/L (98-107); Globulin 3.5 g/dL (1.3-4.6); Glucose 134 mg/dL (65-115); Osmolality Calculated 303 mOsm/kg (285-295); Potassium 4.5 mmol/L (3.5-5.1); Sodium 140 mmol/L (136-145); Total Bilirubin 0.5 mg/dL (0.15-1.2); Total Protein 6.2 g/dL (6.6-8.7)
[2020-12-31] MEDS: remdesivir 100 MG in sodium chloride 0.9% (100 ml) 100 ML IV (05:43)
[2020-12-31 05:55] LABS: Fibrinogen 596 mg/dL (174-498)
[2020-12-31 05:59] LABS: D Dimer 3.83 ug/mIFEU (0-0.59)
[2020-12-31 06:23] LABS: Add RBC Morph Yes; Slide Review Slide Review Perform
[2020-12-31 06:24] LABS: Anisocytosis 1+; Burr Cells 1+; Hypochromasia 1+; Poikilocytosis 1+; RBC Morph Comp No; Target Cells 1+
[2020-12-31] MEDS: piperacillin-tazobactam 3.375 GM in sodium chloride 0.9% (plus) 50 ML IV ×3 (06:45→22:04)
[2020-12-31 07:08] LABS: Glucose Point of Care 140 mg/dL (70-110)
--- NOTE | 2020-12-31 07:40 | PC.NURSE ---
Shift Note Frequent safety and comfort rounds continue. Orders and/or nursing care completed as indicated. Patient monitored for response to intervention and treatment(s). Education provided includes keeping high flow oxygen tubing in her nose. Patient needed verbal redirection multiple times during this shift. Patient is currently resting in bed. Will continue to monitor.
[2020-12-31] MEDS: ipratropium-albuterol 3 mL Neb INHALATION (08:30)
[2020-12-31] MEDS: docusate sodium 100 mg Capsule PO ×2 (09:19→17:30)
[2020-12-31 12:21] LABS: Glucose Point of Care 188 mg/dL (70-110)
--- NOTE | 2020-12-31 15:01 | PM.PN ---
Subjective Subjective: Interval history: She is a little bit more alert today. Says breathing is not the best, but denies coughing. Denies chest pain. Says she is having nausea and diarrhea. Does not remember what year it is, but today knows she is in [place] at the hospital. Vitals/I&O/Wt Last Vital Signs Temp 97.5 F L 12/31/20 12:00 Pulse 79 12/31/20 14:30 Resp 20 H 12/31/20 14:30 BP 124/58 12/31/20 12:00 Pulse Ox 93 12/31/20 14:30 12/31/20 12/31/20 12/31/20 06:59 14:59 22:59 Intake Total 400 / 750 50 / 50 Balance 400 / 750 50 / 50 Weight last 48 hrs Weight 60.328 kg Weight 68.039 kg Physical Exam Const: COMMON NORMALS: no acute distress; negative for patient oriented x3 GENERAL APPEARANCE: cooperative, comfortable and frail appearing ORIENTATION/CONSCIOUSNESS: Yes oriented to person and Yes oriented to place; not oriented to time HENMT: COMMON NORMALS: oropharynx normal Neck/C-Spine: COMMON NORMALS: no JVD Resp: COMMON NORMALS: normal respiratory effort and clear to auscultation bilaterally AUSCULTATION: clear to auscultation bilaterally Cardio: COMMON NORMALS: no JVD, regular rhythm, S1 normal heart sound present, S2 normal heart sound present and No murmurs present (Cardio) RHYTHM: regular rhythm HEART SOUNDS: S1 normal heart sound present and S2 normal heart sound present GI: COMMON NORMALS: Normal to inspection, nondistended, normoactive bowel sounds present, Soft to palpation and non-tender PALPATION: Yes Soft to palpation Extremity: COMMON NORMALS: no joint enlargement and no pedal edema Neuro: COMMON NORMALS: moves all extremities; negative for patient oriented x3 SENSORIUM/ORIENTATION: Yes oriented to person, Yes oriented to place and No oriented to time Skin: COMMON NORMALS: no rashes or lesions noted GENERAL SKIN EXAM: no rashes or lesions noted Data : 12/31/20 04:52 12/31/20 04:52 Micro: Microbiology 12/29/20 20:14 Urine Culture - Preliminary Urine,Clean Catch Gram Negative Rods 12/29/20 17:00 Blood Culture - Preliminary Blood Gram positive cocci 12/29/20 19:24 Blood Culture - Preliminary Blood NEGATIVE TO DATE A&P Assessment and plan (1) Pneumonia due to COVID-19 virus: Appears to be a little bit stronger little bit more interactive today, but says is bothered by nausea and reports diarrhea, although I do not see diarrhea recorded. She is little bit more oriented today, knows she is in [facility]. Does not remember the year. In terms of oxygenation saturations in low 90s on 45 L, 55% FiO2. We will bit of increase in leukocytosis today up to 13.3. Continue oxygen support. Continue remdesivir, Decadron. Continue empiric antibiotic coverage with Zosyn, azithromycin for now. Repeat chest x-ray in the morning. Continue DuoNeb as needed. CRP trending down. D-dimer elevated but without continued increase. Son's phone number is now updated on facesheet. Sounds states she is also listed as emergency contact at the assisted. Her recently . Status: Acute (2) COVID-19 vaccine dose not administered: [id number] confirms she had not had her COVID-19 vaccine. Status: Acute (3) UTI (urinary tract infection): Gram-negative rods in urine culture. Continue Zosyn. Status: Acute Qualifiers: Urinary tract infection type: acute pyelonephritis Qualified Code(s): N10 - Acute pyelonephritis (4) Dementia: Status: Chronic Qualifiers: Dementia type: unspecified type Dementia behavioral disturbance: without behavioral disturbance Qualified Code(s): F03.90 - Unspecified dementia without behavioral disturbance (5) Congestive heart failure: Status: Chronic Qualifiers: Heart failure type: unspecified Heart failure chronicity: chronic Qualified Code(s): I50.9 - Heart failure, unspecified (6) Atrial fibrillation: Status: Chronic Qualifiers: Atrial fibrillation type: unspecified chronic Qualified Code(s): I48.20 - Chronic atrial fibrillation, unspecified (7) Diabetes: Status: Chronic Qualifiers: Diabetes mellitus type: type 2 Diabetes mellitus alf insulin use: with alf use Diabetes mellitus complication status: with hyperglycemia Qualified Code(s): E11.65 - Type 2 diabetes mellitus with hyperglycemia; Z79.4 - supervisor intermediates (current) use of insulin Attestations Medical Necessity Statement*: Continue admission for assessment management of hypoxic respiratory failure with severe COVID-19, UTI in an elderly lady with underlying dementia. Coding Level of Care Code Acute Financial Compliance Officer for [facility] Diagnoses Pneumonia due to COVID-19 virus U07.1; J12.82 COVID-19 vaccine dose not administered Z28.9 UTI (urinary tract infection) N10 Urinary tract infection type: acute pyelonephritis Dementia F03.90 Dementia type: unspecified type Dementia behavioral disturbance: without behavioral disturbance Congestive heart failure I50.9 Heart failure type: unspecified Heart failure chronicity: chronic Atrial fibrillation I48.20 Atrial fibrillation type: unspecified chronic Diabetes E11.65; Z79.4 Diabetes mellitus type: type 2 Diabetes mellitus alf insulin use: with local intermodal truck driver use Diabetes mellitus complication status: with hyperglycemia
[2020-12-31 17:08] LABS: Glucose Point of Care 163 mg/dL (70-110)
[2020-12-31 20:41] LABS: Glucose Point of Care 121 mg/dL (70-110)
[2020-12-31] MEDS: atorvastatin 40 mg Tablet 20 MG PO (22:06)
[2021-01-01] VITALS (13 sets, daily range): BP systolic 108–122; BP diastolic 43–75; PULSE 52–85; RESP 3–30; TEMP 36.3–36.7; O2SAT 88–95
[2021-01-01] MEDS: dexamethasone 4 mg/mL INJ 6 MG IVP (01:17)
[2021-01-01] MEDS: famotidine 20 mg/2 mL INJ IVP ×2 (01:18→13:29)
[2021-01-01] MEDS: enoxaparin 40 mg/0.4 mL Syringe SUBCUT (01:18)
[2021-01-01] MEDS: azithromycin 500 MG in sodium chloride 0.9% 250 ML 250 MG IV (04:06)
[2021-01-01] MEDS: remdesivir 100 MG in sodium chloride 0.9% (100 ml) 100 ML IV (05:06)
[2021-01-01 05:35] LABS: Basophils % 0.1 %; Hematocrit 39.1 % (37.0-47.0); Hemoglobin 12.8 g/dL (11.5-15.3); Lymphocytes % 7.4 %; Mean Corpuscular HGB Conc 32.7 g/dL (30.0-36.0); Mean Corpuscular Hemoglobin 28.6 pg (28.0-34.0); Mean Corpuscular Volume 87.3 fl (81-99); Mean Platelet Volume 12.4 fL (7.4-10.4); Monocytes # 0.8 10^3/uL (0.2-0.9); Neutrophils # 11.55 10^3/uL (1.8-7.7); Neutrophils % 85.8 %; Nucleated Red Blood Cells % 0 %; Platelet Count 270 10^3/cmm (130-400); Red Blood Count 4.48 10^6/uL (4.1-5.3); Red Cell Distribution Width 16.1 % (12.1-15.1); White Blood Count 13.5 10^3/uL (4.0-10.0)
[2021-01-01 05:49] LABS: D Dimer <= 0.27 ug/mIFEU (0-0.59)
--- NOTE | 2021-01-01 06:00 | XR_ITS ---
WS: [id number] Portable AP semiupright chest, 01/01/2021 Clinical Data: Hypoxia Comparison: Portable chest, 12/29/2020 Findings: The bilateral patchy opacities throughout both lungs remain the same. The heart is normal. No nodules or masses are seen. Monitor leads are on the chest wall. XR/XR chest 1V portable [id number] Impression: No change in bilateral patchy pulmonary opacities consistent with pneumonia.
[2021-01-01 06:02] LABS: Alanine Aminotransferase 11 U/L (0-33); Albumin Level 2.7 g/dL (3.5-5.2); Alkaline Phosphatase 84 IU/L (35-105); Aspartate Amino Transferase 17 U/L (0-32); Blood Urea Nitrogen 42 mg/dL (8-23); Calcium 8.3 mg/dL (8.5-10.5); Carbon Dioxide 20 mmol/L (22-29); Chloride 107 mmol/L (98-107); Globulin 3.3 g/dL (1.3-4.6); Glucose 133 mg/dL (65-115); Osmolality Calculated 302 mOsm/kg (285-295); Sodium 140 mmol/L (136-145); Total Bilirubin 0.4 mg/dL (0.15-1.2)
[2021-01-01 06:04] LABS: Anion Gap 17.4 (5-19); Potassium 4.4 mmol/L (3.5-5.1)
[2021-01-01] MEDS: piperacillin-tazobactam 3.375 GM in sodium chloride 0.9% (plus) 50 ML IV ×3 (06:10→22:20)
[2021-01-01 06:19] LABS: Slide Review Slide Review Perform
[2021-01-01] MEDS: docusate sodium 100 mg Capsule PO ×2 (08:11→17:12)
[2021-01-01 11:14] LABS: Glucose Point of Care 129 mg/dL (70-110)
--- NOTE | 2021-01-01 15:30 | PC.NUTR ---
Nutrition assessment for MST/BMI. Recommend to add sandwich with lunch and Glucerna with dinner to provide additional kcal/protein. If well tolerated/enjoyed by pt, can increase as appropriate. Recommend to provide encouragement and assistance as needed to promote po intake. See full RD assessment for further details.
[2021-01-01 17:07] LABS: Glucose Point of Care 164 mg/dL (70-110)
--- NOTE | 2021-01-01 17:54 | PM.PN ---
Subjective Subjective: Interval history: She is taking a nap at the time of visit. She wakes up to voice. Denies any complaints. Denies pain or discomfort. No chest pain. No nausea. Vitals/I&O/Wt Last Vital Signs Temp 97.5 F L 01/01/21 16:00 Pulse 79 01/01/21 17:34 Resp 18 01/01/21 17:34 BP 121/55 01/01/21 16:00 Pulse Ox 89 L 01/01/21 17:34 01/01/21 01/01/21 01/01/21 06:59 14:59 22:59 Intake Total 50 / 150 400 / 400 50 / 450 Balance 50 / 150 400 / 400 50 / 450 Physical Exam Const: COMMON NORMALS: no acute distress EXAM LIMITATIONS: other limitations (Dementia) GENERAL APPEARANCE: frail appearing HENMT: COMMON NORMALS: oropharynx normal Neck/C-Spine: COMMON NORMALS: no JVD Resp: COMMON NORMALS: normal respiratory effort and clear to auscultation bilaterally AUSCULTATION: clear to auscultation bilaterally Cardio: COMMON NORMALS: no JVD, regular rhythm, S1 normal heart sound present, S2 normal heart sound present and No murmurs present (Cardio) RHYTHM: regular rhythm HEART SOUNDS: S1 normal heart sound present and S2 normal heart sound present GI: COMMON NORMALS: Normal to inspection, nondistended, normoactive bowel sounds present, Soft to palpation and non-tender PALPATION: Yes Soft to palpation Extremity: COMMON NORMALS: no joint enlargement and no pedal edema Neuro: COMMON NORMALS: moves all extremities Skin: COMMON NORMALS: no rashes or lesions noted GENERAL SKIN EXAM: no rashes or lesions noted Data : 01/01/21 04:58 01/01/21 04:58 Micro: Microbiology 12/29/20 20:14 Urine Culture - Final Urine,Clean Catch Escherichia coli A&P Assessment and plan (1) Pneumonia due to COVID-19 virus: FiO2 requirement somewhat fluctuating, did go up to needing 80% FiO2 overnight, but decreased this morning, down to 55-60%. Continue high flow cannula support. Some persistence of leukocytosis. Will repeat chest x-ray. Continue oxygen support. Continue remdesivir, Decadron. Continue empiric antibiotic coverage with Zosyn, azithromycin. Continue DuoNeb as needed. CRP trending down. D-dimer elevated but without continued increase. Discussed with her son. Son's phone number is now updated on facesheet. Son's states she is also listed as emergency contact at the halfway. Her recently . Status: Acute (2) COVID-19 vaccine dose not administered: [id number] confirms she had not had her COVID-19 vaccine. Status: Acute (3) UTI (urinary tract infection): E. coli. Continue Zosyn. Status: Acute Qualifiers: Urinary tract infection type: acute pyelonephritis Qualified Code(s): N10 - Acute pyelonephritis (4) Dementia: Status: Chronic Qualifiers: Dementia type: unspecified type Dementia behavioral disturbance: without behavioral disturbance Qualified Code(s): F03.90 - Unspecified dementia without behavioral disturbance (5) Congestive heart failure: Status: Chronic Qualifiers: Heart failure type: unspecified Heart failure chronicity: chronic Qualified Code(s): I50.9 - Heart failure, unspecified (6) Atrial fibrillation: Status: Chronic Qualifiers: Atrial fibrillation type: unspecified chronic Qualified Code(s): I48.20 - Chronic atrial fibrillation, unspecified (7) Diabetes: Status: Chronic Qualifiers: Diabetes mellitus type: type 2 Diabetes mellitus exterminator helper termite insulin use: with exterminator helper termite use Diabetes mellitus complication status: with hyperglycemia Qualified Code(s): E11.65 - Type 2 diabetes mellitus with hyperglycemia; Z79.4 - assisted (current) use of insulin Attestations Medical Necessity Statement*: Continue admission for assessment management of hypoxic respite failure secondary to severe COVID-19. Coding Level of Care Code Acute Sales Communications Manager for [facility] Diagnoses Pneumonia due to COVID-19 virus U07.1; J12.82 COVID-19 vaccine dose not administered Z28.9 UTI (urinary tract infection) N10 Urinary tract infection type: acute pyelonephritis Dementia F03.90 Dementia type: unspecified type Dementia behavioral disturbance: without behavioral disturbance Congestive heart failure I50.9 Heart failure type: unspecified Heart failure chronicity: chronic Atrial fibrillation I48.20 Atrial fibrillation type: unspecified chronic Diabetes E11.65; Z79.4 Diabetes mellitus type: type 2 Diabetes mellitus snf insulin use: with exterminator helper termite use Diabetes mellitus complication status: with hyperglycemia
[2021-01-01] MEDS: atorvastatin 40 mg Tablet 20 MG PO (20:41)
[2021-01-01] MEDS: insulin glargine 100 units/1 mL 5 UNIT SUBCUT (20:50)
[2021-01-01 21:57] LABS: Glucose Point of Care 107 mg/dL (70-110)
[2021-01-02] VITALS (12 sets, daily range): BP systolic 119–139; BP diastolic 58–95; PULSE 67–97; RESP 16–26; TEMP 36.6–36.9; O2SAT 89–93
[2021-01-02] MEDS: dexamethasone 4 mg/mL INJ 6 MG IVP (01:03)
[2021-01-02] MEDS: enoxaparin 40 mg/0.4 mL Syringe SUBCUT (01:03)
[2021-01-02] MEDS: famotidine 20 mg/2 mL INJ IVP ×2 (01:05→15:10)
[2021-01-02] MEDS: azithromycin 500 MG in sodium chloride 0.9% 250 ML 250 MG IV (04:36)
[2021-01-02] MEDS: remdesivir 100 MG in sodium chloride 0.9% (100 ml) 100 ML IV (06:30)
[2021-01-02 06:33] LABS: Eosinophils % 0.1 %; Hematocrit 37.9 % (37.0-47.0); Hemoglobin 12.3 g/dL (11.5-15.3); Lymphocytes # 0.7 10^3/uL (0.8-4.8); Lymphocytes % 8.9 %; Mean Corpuscular HGB Conc 32.5 g/dL (30.0-36.0); Mean Corpuscular Hemoglobin 28.7 pg (28.0-34.0); Mean Corpuscular Volume 88.3 fl (81-99); Mean Platelet Volume 11.9 fL (7.4-10.4); Monocytes # 0.5 10^3/uL (0.2-0.9); Monocytes % 5.7 %; Neutrophils # 6.61 10^3/uL (1.8-7.7); Neutrophils % 84.3 %; Nucleated Red Blood Cells % 0 %; Platelet Count 302 10^3/cmm (130-400); Red Blood Count 4.29 10^6/uL (4.1-5.3); Red Cell Distribution Width 16.4 % (12.1-15.1); White Blood Count 7.9 10^3/uL (4.0-10.0)
[2021-01-02 06:54] LABS: Glucose Point of Care 136 mg/dL (70-110)
[2021-01-02 07:07] LABS: Alanine Aminotransferase 11 U/L (0-33); Albumin Level 2.5 g/dL (3.5-5.2); Alkaline Phosphatase 83 IU/L (35-105); Blood Urea Nitrogen 34 mg/dL (8-23); Calcium 8.7 mg/dL (8.5-10.5); Carbon Dioxide 21 mmol/L (22-29); Chloride 109 mmol/L (98-107); Globulin 3.6 g/dL (1.3-4.6); Glucose 133 mg/dL (65-115); Osmolality Calculated 304 mOsm/kg (285-295); Sodium 142 mmol/L (136-145); Total Bilirubin 0.6 mg/dL (0.15-1.2); Total Protein 6.1 g/dL (6.6-8.7)
[2021-01-02 07:15] LABS: Anion Gap 16.2 (5-19); Aspartate Amino Transferase 18 U/L (0-32); Potassium 4.2 mmol/L (3.5-5.1)
[2021-01-02] MEDS: piperacillin-tazobactam 3.375 GM in sodium chloride 0.9% (plus) 50 ML IV ×3 (08:32→21:20)
[2021-01-02] MEDS: losartan 50 mg Tablet 25 MG PO (08:35)
[2021-01-02] MEDS: docusate sodium 100 mg Capsule PO ×2 (08:36→17:50)
[2021-01-02 11:36] LABS: Glucose Point of Care 169 mg/dL (70-110)
--- NOTE | 2021-01-02 15:28 | P.PN_ITS ---
Subjective Subjective: Interval history: Conditions more awake, sitting up, eating grapes, about to start her lunch. Says she is feeling little bit better, but is having a headache, nausea, reports diarrhea. Reports also vomiting, although I do not see either of the latter recorded. Not sure if these indeed are present. Confirming with her nurse, no vomiting or diarrhea present. Vitals/I&O/Wt Last Vital Signs Temp 97.9 F 01/02/21 12:21 Pulse 96 01/02/21 14:57 Resp 18 01/02/21 14:57 BP 120/58 01/02/21 12:21 Pulse Ox 93 01/02/21 14:57 01/02/21 01/02/21 01/02/21 06:59 14:59 22:59 Intake Total 568 / 568 Balance 568 / 568 Physical Exam Const: COMMON NORMALS: no acute distress EXAM LIMITATIONS: other limitat ions (Dementia) GENERAL APPEARANCE: frail appearing ORIENT ATION/CONSCIOUSNESS: Yes oriented to person and Yes oriented to place; not oriented to time HENMT: COMMON NORMALS: oropharynx normal Neck/C-Spine: COMMON NORMALS: no JVD Resp: COMMON NORMALS: normal respiratory effort and clear to auscultation bilaterally AUSCULTATION: clear to auscultation bilaterally Cardio: COMMON NORMALS: no JVD, regular rhythm, S1 normal heart sound present, S2 normal heart sound present and No murmurs present (Cardio) RHYTHM: regular rhythm HEART SOUNDS: S1 normal heart sound present and S2 normal heart sound present GI: COMMON NORMALS: Normal to inspection, nondistended, normoactive bowel sounds present, Soft to palpation and non-tender PALPATION: Yes Soft to palpation Extremity: COMMON NORMALS: no joint enlargement and no pedal edema Neuro: COMMON NORMALS: moves all extremities SENSORIUM/ORIENTATION: Yes oriented to person, Yes oriented to place and No oriented to time Skin: COMMON NORMALS: no rashes or lesions noted GENERAL SKIN EXAM: no rashes or lesions noted Data : 01/02/21 05:45 01/02/21 05:45 Micro: Microbiology 12/29/20 17:00 Blood Culture - Preliminary Blood Coagulase negativ staphylococc A&P Assessment and plan (1) Pneumonia due to COVID-19 virus: Slightly better FiO2 requirement. Appears to be showing slow improvement. Down to FiO2 50%. Currently trialing high flow cannula 15 L. Continue high flow cannula support. Leukocytosis now resolved. Continue remdesivir, Decadron. Continue empiric antibiotic coverage with Zosyn, azithromycin. Continue DuoNeb as needed. Recheck D-dimer. Son's phone number is now updated on facesheet. Son's states she is also listed as emergency contact at the [facility]. Her recently . Status: Acute (2) COVID-19 vaccine dose not administered: [id number] confirms she had not had her COVID-19 vaccine. Status: Acute (3) UTI (urinary tract infection): E. coli. Continue Zosyn 1 more day. Status: Acute Qualifiers: Urinary tract infection type: acute pyelonephritis Qualified Code(s): N10 - Acute pyelonephritis (4) Dementia: Status: Chronic Qualifiers: Dementia type: unspecified type Dementia behavioral disturbance: without behavioral disturbance Qualified Code(s): F03.90 - Unspecified dementia without behavioral disturbance (5) Congestive heart failure: Status: Chronic Qualifiers: Heart failure type: unspecified Heart failure chronicity: chronic Qu alified Code(s): I50.9 - Heart failure, unspecified (6) Atrial fibrillation: Status: Chronic Qualifiers: Atrial fibrillation type: unspecified chronic Qualified Code(s): I48.20 - Chronic atrial fibrillation, unspecified (7) Diabetes: Status: Chronic Qualifiers: Diabetes mellitus type: type 2 Diabetes mellitus half-way insulin use: with petroleum terminal plant operator use Diabetes mellitus complication status: with hyperglycemia Qualified Code(s): E11.65 - Type 2 diabetes mellitus with hyperglycemia; Z79.4 - skilled nursing (current) use of insulin Attestations Medical Necessity Statement*: Continue admission for treatment of hypoxic respite failure with severe COVID-19. Coding Level of Care Code Acute Geographic Analyst for [facility] Fwd Diagnoses Pneumonia due to COVID-19 virus U07.1; J12.82 COVID-19 vaccine dose not administered Z28.9 UTI (urinary tract infection) N10 Urinary tract infection type: acute pyelonephritis Dementia F03.90 Dementia type: unspecified type Dementia behavioral disturbance: without behavioral disturbance Congestive heart failure I50.9 Heart failure type: unspecified Heart failure chronicity: chronic Atrial fibrillation I48.20 Atrial fibrillation type: unspecified chronic Diabetes E11.65; Z79.4 Diabetes mellitus type: type 2 Diabetes mellitus half-way insulin use: with petroleum terminal plant operator use Diabetes mellitus complication status: with hyperglycemia
[2021-01-02] MEDS: acetaminophen 325 mg Tablet 650 MG PO (17:46)
[2021-01-02] MEDS: atorvastatin 40 mg Tablet 20 MG PO (21:20)
[2021-01-02 21:23] LABS: Glucose Point of Care 240 mg/dL (70-110)
[2021-01-02 21:23] LABS: Glucose Point of Care 236 mg/dL (70-110)
[2021-01-02] MEDS: insulin glargine 100 units/1 mL 5 UNIT SUBCUT (21:25)
[2021-01-03] VITALS (12 sets, daily range): BP systolic 106–125; BP diastolic 48–68; PULSE 75–98; RESP 18–26; TEMP 36.4–37; O2SAT 87–93
[2021-01-03] MEDS: enoxaparin 40 mg/0.4 mL Syringe SUBCUT (01:20)
[2021-01-03] MEDS: dexamethasone 4 mg/mL INJ 6 MG IVP (01:21)
[2021-01-03] MEDS: famotidine 20 mg/2 mL INJ IVP ×2 (01:22→13:48)
[2021-01-03] MEDS: azithromycin 500 MG in sodium chloride 0.9% 250 ML 250 MG IV (04:33)
[2021-01-03] MEDS: remdesivir 100 MG in sodium chloride 0.9% (100 ml) 100 ML IV (05:54)
[2021-01-03] MEDS: piperacillin-tazobactam 3.375 GM in sodium chloride 0.9% (plus) 50 ML IV (06:51)
[2021-01-03 06:54] LABS: Glucose Point of Care 169 mg/dL (70-110)
[2021-01-03 07:14] LABS: Basophils % 0.3 %; Eosinophils # 0.1 10^3/uL (0.0-0.8); Eosinophils % 1.1 %; Hematocrit 32.6 % (37.0-47.0); Hemoglobin 10.5 g/dL (11.5-15.3); Lymphocytes # 0.8 10^3/uL (0.8-4.8); Lymphocytes % 11.6 %; Mean Corpuscular HGB Conc 32.2 g/dL (30.0-36.0); Mean Corpuscular Hemoglobin 29.2 pg (28.0-34.0); Mean Corpuscular Volume 90.6 fl (81-99); Mean Platelet Volume 11.9 fL (7.4-10.4); Monocytes # 0.5 10^3/uL (0.2-0.9); Neutrophils # 5.48 10^3/uL (1.8-7.7); Neutrophils % 78.7 %; Nucleated Red Blood Cells % 0 %; Platelet Count 271 10^3/cmm (130-400); Red Cell Distribution Width 16.4 % (12.1-15.1)
[2021-01-03 07:26] LABS: D Dimer 5.87 ug/mIFEU (0-0.59)
[2021-01-03 07:53] LABS: Alanine Aminotransferase 13 U/L (0-33); Alkaline Phosphatase 79 IU/L (35-105); Aspartate Amino Transferase 21 U/L (0-32); Blood Urea Nitrogen 25 mg/dL (8-23); Calcium 8.2 mg/dL (8.5-10.5); Carbon Dioxide 22 mmol/L (22-29); Chloride 113 mmol/L (98-107); Globulin 3.4 g/dL (1.3-4.6); Glucose 155 mg/dL (65-115); Osmolality Calculated 312 mOsm/kg (285-295); Sodium 147 mmol/L (136-145); Total Bilirubin 0.6 mg/dL (0.15-1.2); Total Protein 5.4 g/dL (6.6-8.7)
[2021-01-03 08:26] LABS: Anion Gap 15.9 (5-19); Potassium 3.9 mmol/L (3.5-5.1)
[2021-01-03] MEDS: losartan 50 mg Tablet 25 MG PO (09:13)
[2021-01-03] MEDS: docusate sodium 100 mg Capsule PO ×2 (09:14→17:06)
--- NOTE | 2021-01-03 10:09 | P.PN_ITS ---
Subjective Subjective: Interval history: Denies any new complaints today. Not oriented. Does not appear in distress, but appears generally weak. Vitals/I&O/Wt Last Vital Signs Temp 97.5 F L 01/03/21 08:00 Pulse 83 01/03/21 09:12 Resp 19 H 01/03/21 09:12 BP 118/48 01/03/21 09:13 Pulse Ox 90 01/03/21 09:12 01/02/21 01/03/21 01/03/21 22:59 06:59 14:59 Intake Total 290 / 858 50 / 908 250 / 250 Output Total 75 / 75 Balance 290 / 858 -25 / 833 250 / 250 Physical Exam Const: COMMON NORMALS: no acute distress EXAM LIMITATIONS: other limitations (Dementia) GENERAL APPEARANCE: frail appearing HENMT: COMMON NORMALS: oropharynx normal Neck/C-Spine: COMMON NORMALS: no JVD Resp: COMMON NORMALS: normal respiratory effort and clear to auscultation bilaterally AUSCULTATION: clear to auscultation bilaterally Cardio: COMMON NORMALS: no JVD, regular rhythm, S1 normal heart sound present, S2 normal heart sound present and No murmurs present (Cardio) RHYTHM: regular rhythm HEART SOUNDS: S1 normal heart sound present and S2 normal heart sound present GI: COMMON NORMALS: Normal to inspection, nondistended, normoactive bowel sounds present, Soft to palpation and non-tender PALPATION: Yes Soft to palpation Extremity: COMMON NORMALS: no joint enlargement and no pedal edema Neuro: COMMON NORMALS: moves all extremities Skin: COMMON NORMALS: no rashes or lesions noted GENERAL SKIN EXAM: no rashes or lesions noted Data : 01/03/21 06:42 01/03/21 06:42 A&P Assessment and plan (1) Pneumonia due to COVID-19 virus: Was weaned down to high flow cannula, continues to require 15 L. Wean down as tolerating. Leukocytosis now resolved. Completes course of remdesivir today. Continue Decadron. DC Zosyn, azithromycin. Completed 5 days. Continue DuoNeb as needed. Recheck D-dimer up higher to 5.87. Will request venous duplex studies. Continue prophylactic Lovenox. Recheck D-dimer. Could not reach son today by phone for update. Son's phone number is now updated on facesheet. Son's states she is also listed as emergency contact at the longterm. Her recently . Status: Acute (2) COVID-19 vaccine dose not administered: Ippjehrp-sb-fle confirms she had not had her COVID-19 vaccine. Status: Acute (3) UTI (urinary tract infection): E. coli. Completed 5d of Zosyn Status: Acute Qualifiers: Urinary tract infection type: acute pyelonephritis Qualified Code(s): N10 - Acute pyelonephritis (4) Dementia: Status: Chronic Qualifiers: Dementia type: unspecified type Dementia behavioral disturbance: with out behavioral disturbance Qualified Code(s): F03.90 - Unspecified dementia without behavioral disturbance (5) Congestive heart failure: Status: Chronic Qualifiers: Heart failure type: unspecified Heart failure chronicity: chronic Qualified Code(s): I50.9 - Heart failure, unspecified (6) Atrial fibrillation: Status: Chronic Qualifiers: Atrial fibrillation type: unspecified chronic Qualified Code(s): I48.20 - Chronic atrial fibrillation, unspecified (7) Diabetes: Status: Chronic Qualifiers: Diabetes mellitus type: type 2 Diabetes mellitus exterminator helper termite insulin use: with exterminator helper termite use Diabetes mellitus complication status: with hyperglycemia Qualified Code(s): E11.65 - Type 2 diabetes mellitus with hyperglycemia; Z79.4 - exterminator helper termite (current) use of insulin Additional A&P Information Coagulase-negative staph in blood: /2 bottles 12/29. Suspected contamination. Attestations Medical Necessity Statement*: Continue admission for assessment and management of hypoxic respiratory failure with severe COVID-19. Coding Level of Care Code Acute Congregational Care Pastor for [facility] Diagnoses Pneumonia due to COVID-19 virus U07.1; J12.82 COVID-19 vaccine dose not administered Z28.9 UTI (urinary tract infection) N10 Urinary tract infection type: acute pyelonephritis Dementia F03.90 Dementia type: unspecified type Dementia behavioral disturbance: without behavioral disturbance Congestive heart failure I50.9 Heart failure type: unspecified Heart failure chronicity: chronic Atrial fibrillation I48.20 Atrial fibrillation type: unspecified chronic Diabetes E11.65; Z79.4 Diabetes mellitus type: type 2 Diabetes mellitus nursing home insulin use: with nursing home use Diabetes mellitus complication status: with hyperglycemia
--- NOTE | 2021-01-03 10:13 | USR_ITS ---
PROCEDURE INFORMATION: Exam: US Duplex Lower Extremity Veins, Bilateral Exam date and time: 01/03/2021 10:13 AM Age: 80 years old Clinical indication: Other: Covid, rising d-dimer; Additional info: Covid, rising ddimer, assess for vte TECHNIQUE: Imaging protocol: Real-time duplex ultrasound of the extremities with 2-D jennings scale, color Doppler flow and spectral waveform analysis with image documentation. Complete exam focused on the bilateral lower extremity veins. COMPARISON: No relevant prior studies available. FINDINGS: Right deep veins: Unremarkable. The common femoral, femoral, proximal profunda femoral and popliteal veins are patent without thrombus. Normal Doppler waveforms. Normal compressibility and/or augmentation response. Right superficial veins: Saphenofemoral junction is patent without thrombus. Left deep veins: Unremarkable. The common femoral, femoral, proximal profunda femoral and popliteal veins are patent without thrombus. Normal Doppler waveforms. Normal compressibility and/or augmentation response. Left superficial veins: Saphenofemoral junction is patent without thrombus. Soft tissues: Unremarkable. US/CV venous duplex [facility] [id number] IMPRESSION: No evidence of deep vein thrombosis.
[2021-01-03 12:25] LABS: Glucose Point of Care 103 mg/dL (70-110)
--- NOTE | 2021-01-03 14:50 | PC.NURSE ---
patient complains of pain. patient only has Tylenol. Requesting something for pain
--- NOTE | 2021-01-03 15:01 | ECG_ITS ---
[facility] Test Date: 2021-01-03 Pat Name: Tracie Tejeda Department: Room: 213 Gender: Female Expander: : 1940 Requested By: Calos Roman Order Number: [id number] Reading MD: Lita Dover M.D. Measurements Intervals [place] Rate: 93 P: 45 CT: 125 QRS: 17 QRSD: 98 T: 84 QT: 380 QTc: 474 Interpretive Statements SINUS RHYTHM WITH FREQUENT VENTRICULAR PREMATURE COMPLEXES NONSPECIFIC ST & T-WAVE ABNORMALITY Compared to ECG 12/30/2020 02:28:57 No significant changes Electronically Signed On 01-04-2021 13:10:43 CDT by Lita Dover M.D. [email or web address]/[id number]
--- NOTE | 2021-01-03 15:32 | PC.NURSE ---
Son Mario called and gave permission for CTA. credit underwriter notified Dr Roman
--- NOTE | 2021-01-03 15:46 | CTR_ITS ---
PROCEDURE INFORMATION: Exam: CTA Chest With Contrast Exam date and time: 01/03/2021 3:46 PM Age: 80 years old Clinical indication: Shortness of breath; Patient HX: Covid+ w worsening hypoxia and elev d-dimer; Additional info: Hypoxia, elev ddimer, assess for pe TECHNIQUE: Imaging protocol: Computed tomographic angiography of the chest with contrast. 3D rendering (Not supervised by radiologist): MIP and/or 3D reconstructed images were created by the technologist. Radiation optimization: All CT scans at this facility use at least one of these dose optimization techniques: automated exposure control; mA and/or kV adjustment per patient size (includes targeted exams where dose is matched to clinical indication); or iterative reconstruction. Contrast material: OMNI 350; Contrast volume: 63 ml; Contrast route: INTRAVENOUS (IV); COMPARISON: CR XR chest 1V portable [id number] 01/01/2021 6:29 AM RADIATION DOSE METRICS: Total DLP (mGy-cm): 576.02 FINDINGS: Pulmonary arteries: Normal. No pulmonary emboli. Aorta: Unremarkable. No aortic aneurysm. No aortic dissection. Lungs: Multifocal bilateral pulmonary infiltrates. Pleural spaces: Small bilateral pleural effusions. Heart: Cardiomegaly. There is reflux of contrast into the hepatic veins consistent with right heart strain. Lymph nodes: Unremarkable. No enlarged lymph nodes. Gallbladder and bile ducts: The gallbladder has been removed. Bones/joints: Unremarkable. No acute fracture. Soft tissues: Unremarkable. CT/CT angio chest PE protcl [id number] IMPRESSION: 1. Multifocal bilateral pulmonary infiltrates.Imaging features can be seen with COVID-19 pneumonia, though are nonspecific and can occur with a variety of infectious and noninfectious processes. (Reference: Oseas) 2. Cardiomegaly. There is reflux of contrast into the hepatic veins consistent with right heart strain. 3. No evidence for pulmonary embolus. REFERENCES: Oseas Byers, et al., Radiological Society of [place] Expert Consensus Statement on Reporting Chest CT Findings Related to COVID-19. Endorsed by the Society of Thoracic Radiology, the [place] [employer], and RSNA. Published August 07, 2019. Radiation Dose CTDIVOL = (mGy): DLP = 576.02 (mGy-cm)
[2021-01-03 16:59] LABS: Glucose Point of Care 163 mg/dL (70-110)
--- NOTE | 2021-01-03 17:01 | ECG_ITS ---
[facility] Test Date: 2021-01-03 Pat Name: Tracie Tejeda Department: Room: 213 Gender: Female Show Design Supervisor: : 1940 Requested By: Calos Roman Order Number: [id number] Reading MD: James Escoto M.D. Measurements Intervals [place] Rate: 96 P: 58 SC: 129 QRS: 27 QRSD: 93 T: 49 QT: 365 QTc: 462 Interpretive Statements SINUS RHYTHM WITH FREQUENT VENTRICULAR PREMATURE COMPLEXES NONSPECIFIC T-WAVE ABNORMALITY ABNORMAL RHYTHM ECG Compared to ECG 01/03/2021 15:19:45 No significant changes Electronically Signed On 01-05-2021 17:17:05 CDT by James Escoto M.D. [email or web address] Indiafr[facility] hospitalG[facility] Electrochemical Systemso[facility].[employer]/store/[id number]
[2021-01-03 17:31] LABS: Troponin(5th) Baseline 36 ng/L (0-10)
[2021-01-03 19:38] LABS: Troponin 5 2HR 35.99 ng/L (0-10)
[2021-01-03 19:46] LABS: Troponin 5 2HR Delta -0.01 ABS# (0-10)
[2021-01-03 21:03] LABS: Glucose Point of Care 187 mg/dL (70-110)
[2021-01-03] MEDS: atorvastatin 40 mg Tablet 20 MG PO (22:16)
[2021-01-03] MEDS: insulin glargine 100 units/1 mL 5 UNIT SUBCUT (22:20)
[2021-01-03] MEDS: iohexol 350 mg/mL 100 mL Btl IV (23:13)
[2021-01-04] VITALS (20 sets, daily range): BP systolic 101–145; BP diastolic 46–74; PULSE 81–112; RESP 18–28; TEMP 36.5–37.3; O2SAT 89–97
[2021-01-04] MEDS: enoxaparin 40 mg/0.4 mL Syringe SUBCUT (02:03)
[2021-01-04] MEDS: dexamethasone 4 mg/mL INJ 6 MG IVP (02:03)
[2021-01-04] MEDS: famotidine 20 mg/2 mL INJ IVP ×2 (02:04→12:56)
[2021-01-04] MEDS: acetaminophen 325 mg Tablet 650 MG PO ×2 (06:05→12:56)
[2021-01-04 06:16] LABS: Basophils % 0.1 %; Eosinophils # 0.1 10^3/uL (0.0-0.8); Eosinophils % 0.5 %; Hematocrit 37.6 % (37.0-47.0); Hemoglobin 12.6 g/dL (11.5-15.3); Lymphocytes # 0.9 10^3/uL (0.8-4.8); Lymphocytes % 8.6 %; Mean Corpuscular HGB Conc 33.5 g/dL (30.0-36.0); Mean Corpuscular Hemoglobin 28.6 pg (28.0-34.0); Mean Corpuscular Volume 85.5 fl (81-99); Monocytes # 0.6 10^3/uL (0.2-0.9); Monocytes % 6.1 %; Neutrophils # 8.47 10^3/uL (1.8-7.7); Neutrophils % 83.6 %; Nucleated Red Blood Cells % 0 %; Platelet Count 280 10^3/cmm (130-400); Red Cell Distribution Width 16.1 % (12.1-15.1); White Blood Count 10.1 10^3/uL (4.0-10.0)
[2021-01-04 06:39] LABS: D Dimer 16.19 ug/mIFEU (0-0.59)
[2021-01-04 06:47] LABS: Glucose Point of Care 136 mg/dL (70-110)
[2021-01-04 06:49] LABS: Alanine Aminotransferase 11 U/L (0-33); Albumin Level 2.2 g/dL (3.5-5.2); Alkaline Phosphatase 82 IU/L (35-105); Anion Gap 14.5 (5-19); Aspartate Amino Transferase 12 U/L (0-32); Blood Urea Nitrogen 17 mg/dL (8-23); Calcium 8.7 mg/dL (8.5-10.5); Carbon Dioxide 22 mmol/L (22-29); Chloride 114 mmol/L (98-107); Globulin 3.2 g/dL (1.3-4.6); Glucose 121 mg/dL (65-115); Osmolality Calculated 307 mOsm/kg (285-295); Potassium 3.5 mmol/L (3.5-5.1); Sodium 147 mmol/L (136-145); Total Bilirubin 0.6 mg/dL (0.15-1.2); Total Protein 5.4 g/dL (6.6-8.7)
[2021-01-04] MEDS: losartan 50 mg Tablet 25 MG PO (08:55)
[2021-01-04] MEDS: docusate sodium 100 mg Capsule PO ×2 (08:55→16:58)
--- NOTE | 2021-01-04 08:56 | PC.CHAP ---
Pastoral Care Encounter/Spiritual Assessment Type of Contact [] Declined timber setter visit [] Patient/Family/Request visit [] Outpatient visit [] Follow-up visit [] Physician referral [] Code/Alert [x] Routine visit [] Staff referral [] Actively dying [] Patient sleeping [] Family support [] [] Out of room [] Palliative care [] [] Receiving care in room [] Pre-surgical visit [] Trauma [] Long length of stay [] ICU visit [x] Other: 2a Relational/Emotional Strength [] Patient feels connected with others/family/visitors/staff [] Distress [] Loneliness/isolation [] Abandonment Spirituality of Patient [] Person of Alina [] Attends Taoist of their Alina [] Believes in Prayer [] Reads Bible or Yazidi materials [] There are Spiritual issues to be addressed Earth Boring Machine Operator Interventions [x] Prayer [] Active listening [] Non-anxious presence [] Spiritual/emotional support [] Crisis/trauma care [] Spiritual counseling [] Bereavement support [] Provided bereavement packet [] Provided Bible/devotional materials [] Provided toy/stuffed animal, coloring book to patient or family member [] Provided Communion [] Anointing/[place] [] Salvation [x] Completed spiritual assessment [] Other: Impact on Illness or Injury [] Angry [] Fearful [] Anxious [] Often cries [] Exhaustion [] Unable to work [] Unable to attend yazidism [] Unable to walk/stand [] Unable to read [] Unable to drive [] Unable to eat/drink [] Unable to sleep [] Unable to be with family [] Patient intubated [] Other: Summary continue to pray for patient... serve breakfast.. have never found the patient awake.... Time spent with patient
[2021-01-04 11:27] LABS: Glucose Point of Care 299 mg/dL (70-110)
--- NOTE | 2021-01-04 14:17 | PM.PN ---
Subjective Subjective: Interval history: Patient was seen and examined this morning, she looks very lethargic and fatigued when I called the nursing staff told me that she has been extremely weak and this is her first day when she is able to grab a bottle of Ensure to drink by herself otherwise she would need some assistance and she mostly chews on the straws and stay confused She is following my commands, she is holding Ensure in her hand and trying to drink no aspiration noted, Vitals/I&O/Wt Last Vital Signs Temp 98.4 F 01/04/21 11:45 Pulse 91 01/04/21 11:58 Resp 20 H 01/04/21 11:58 BP 101/60 01/04/21 11:45 Pulse Ox 94 01/04/21 11:58 01/03/21 01/04/21 01/04/21 22:59 06:59 14:59 Intake Total 600 / 600 Balance 600 / 600 Physical Exam Narrative: EXAM NARRATIVE: Patient is very lethargic and fatigued No active neurological deficits however able to follow commands Holding Ensure in her hand Does not make eye contact Has no energy to get up on her own from her bed S1, S2 systolic murmur appreciated no signs of heart failure Abdomen soft Bilateral breath sounds, rhonchi and crepitation noted Lower extremity no edema Data : 01/04/21 06:05 01/04/21 06:05 Micro: Microbiology 12/29/20 17:00 Blood Culture - Final Blood Coagulase negativ staphylococc 12/29/20 19:24 Blood Culture - Final Blood NO GROWTH AFTER 5 DAYS A&P Assessment and plan (1) COVID-19: Status: Acute (2) Diabetes: Status: Chronic Qualifiers: Diabetes mellitus type: type 2 Diabetes mellitus [facility] insulin use: with salvage determiner use Diabetes mellitus complication status: with hyperglycemia Qualified Code(s): E11.65 - Type 2 diabetes mellitus with hyperglycemia; Z79.4 - senior living (current) use of insulin (3) Pneumonia due to COVID-19 virus: Status: Acute (4) COVID-19 vaccine dose not administered: Status: Acute (5) Atrial fibrillation: Status: Chronic Qualifiers: Atrial fibrillation type: unspecified chronic Qualified Code(s): I48.20 - Chronic atrial fibrillation, unspecified (6) Dementia: Status: Chronic Qualifiers: Dementia type: unspecified type Dementia behavioral disturbance: without behavioral disturbance Qualified Code(s): F03.90 - Unspecified dementia without behavioral disturbance Additional A&P Information Acute hypoxia related to COVID-19 Severe ARDS 90% 40 L heated high flow, weaned off oxygen from 100% Patient extremely lethargic, able to follow verbal commands otherwise very fatigued No active neurological deficits Status post remdesivir Finished antibiotic regimen 6-day in the hospital continue Decadron for now CTA does show right-sided PE, will start therapeutic dose of Lovenox no evidence of DVT UTI: Status post Zosyn Dementia: Seems to be getting worse Poor p.o. intake Poor prognosis High risk for mortality and morbidity A. fib without RVR Rate controlled Diabetes: Consistent carb diet with moderate sliding scale and Lantus DNR/DNI Consistent carb diet Attestations Medical Necessity Statement*: Medical management for worsening hypoxia Time Spent in Patient Care: less than 15 minutes Coding Level of Care Code Acute Wic Site Coordinator for [facility] Diagnoses COVID-19 U07.1 Diabetes E11.65; Z79.4 Diabetes mellitus type: type 2 Diabetes mellitus salvage determiner insulin use: with salvage determiner use Diabetes mellitus complication status: with hyperglycemia Pneumonia due to COVID-19 virus U07.1; J12.82 COVID-19 vaccine dose not administered Z28.9 Atrial fibrillation I48.20 Atrial fibrillation type: unspecified chronic Dementia F03.90 Dementia type: unspecified type Dementia behavioral disturbance: without behavioral disturbance
--- NOTE | 2021-01-04 15:57 | PC.NURSE ---
Clarified D5 1/2NS order with Dr Delcid. he said to start it now and stop it at 2100 today.
[2021-01-04] MEDS: enoxaparin 60 mg/0.6 mL Syringe SUBCUT (16:17)
[2021-01-04 16:29] LABS: Glucose Point of Care 270 mg/dL (70-110)
[2021-01-04] MEDS: dextrose 5%-sod chloride 0.45% 1,000 ML 30 ML IV (16:52)
[2021-01-04 20:41] LABS: Glucose Point of Care 90 mg/dL (70-110)
[2021-01-04] MEDS: insulin glargine 100 units/1 mL 5 UNIT SUBCUT (20:41)
[2021-01-04] MEDS: atorvastatin 40 mg Tablet 20 MG PO (20:41)
[2021-01-05] VITALS (16 sets, daily range): BP systolic 89–122; BP diastolic 55–70; PULSE 75–97; RESP 13–24; TEMP 36.2–36.8; O2SAT 90–96
[2021-01-05] MEDS: dexamethasone 4 mg/mL INJ 6 MG IVP (01:37)
[2021-01-05] MEDS: famotidine 20 mg/2 mL INJ IVP ×2 (01:37→12:20)
[2021-01-05] MEDS: enoxaparin 60 mg/0.6 mL Syringe SUBCUT ×2 (03:50→16:01)
[2021-01-05 05:41] LABS: Basophils % 0.1 %; Eosinophils # 0.1 10^3/uL (0.0-0.8); Eosinophils % 0.5 %; Hematocrit 33.9 % (37.0-47.0); Hemoglobin 11.1 g/dL (11.5-15.3); Lymphocytes # 0.6 10^3/uL (0.8-4.8); Lymphocytes % 5.2 %; Mean Corpuscular HGB Conc 32.7 g/dL (30.0-36.0); Mean Corpuscular Hemoglobin 28.5 pg (28.0-34.0); Mean Corpuscular Volume 87.1 fl (81-99); Mean Platelet Volume 11.2 fL (7.4-10.4); Monocytes # 0.4 10^3/uL (0.2-0.9); Monocytes % 3.2 %; Neutrophils # 9.96 10^3/uL (1.8-7.7); Neutrophils % 90.4 %; Nucleated Red Blood Cells % 0 %; Platelet Count 244 10^3/cmm (130-400); Red Blood Count 3.89 10^6/uL (4.1-5.3); Red Cell Distribution Width 16.3 % (12.1-15.1)
[2021-01-05 06:00] LABS: Alanine Aminotransferase 8 U/L (0-33); Alkaline Phosphatase 74 IU/L (35-105); Anion Gap 11.2 (5-19); Aspartate Amino Transferase 9 U/L (0-32); Blood Urea Nitrogen 20 mg/dL (8-23); Calcium 7.9 mg/dL (8.5-10.5); Carbon Dioxide 23 mmol/L (22-29); Chloride 110 mmol/L (98-107); Glucose 165 mg/dL (65-115); Osmolality Calculated 296 mOsm/kg (285-295); Potassium 4.2 mmol/L (3.5-5.1); Sodium 140 mmol/L (136-145); Total Bilirubin 0.4 mg/dL (0.15-1.2)
[2021-01-05 06:38] LABS: Glucose Point of Care 178 mg/dL (70-110)
[2021-01-05] MEDS: losartan 50 mg Tablet 25 MG PO (07:29)
--- NOTE | 2021-01-05 08:43 | PC.CHAP ---
Pastoral Care Encounter/Spiritual Assessment Type of Contact [] Declined business intelligence architect visit [] Patient/Family/Request visit [] Outpatient visit [] Follow-up visit [] Physician referral [] Code/Alert [x] Routine visit [] Staff referral [] Actively dying [] Patient sleeping [] Family support [] [] Out of room [] Palliative care [] [] Receiving care in room [] Pre-surgical visit [] Trauma [] Long length of stay [] ICU visit [x] Other: 2a.. still sleeping.. served breakfast Relational/Emotional Strength [] Patient feels connected with others/family/visitors/staff [] Distress [] Loneliness/isolation [] Abandonment Spirituality of Patient [] Person of Alina [] Attends Jain of their Alina [] Believes in Prayer [] Reads Bible or Zoroastrianism materials [] There are Spiritual issues to be addressed Category Consultant Interventions [x] Prayer [] Active listening [] Non-anxious presence [] Spiritual/emotional support [] Crisis/trauma care [] Spiritual counseling [] Bereavement support [] Provided bereavement packet [] Provided Bible/devotional materials [] Provided toy/stuffed animal, coloring book to patient or family member [] Provided Communion [] Anointing/[place] [] Salvation [x] Completed spiritual assessment [] Other: Impact on Illness or Injury [] Angry [] Fearful [] Anxious [] Often cries [] Exhaustion [] Unable to work [] Unable to attend religion [] Unable to walk/stand [] Unable to read [] Unable to drive [] Unable to eat/drink [] Unable to sleep [] Unable to be with family [] Patient intubated [] Other: Summary Time spent with patient
[2021-01-05 10:47] LABS: Glucose Point of Care 251 mg/dL (70-110)
[2021-01-05] MEDS: docusate sodium 100 mg Capsule PO ×2 (11:05→17:31)
--- NOTE | 2021-01-05 13:39 | P.PN_ITS ---
Subjective Subjective: Interval history: Patient was seen and examined, I also called her family to update Today I decrease her FiO2 to 60% and 40 L Her O2 saturation was 90 to 92% Patient was able to tell me her son's name I did verify with the family that even before her admission to the hospital her baseline functional status was very poor she was not ambulating at home was leading a sedentary lifestyle she would hardly communicate at home has dementia When I told him about current clinical status family stated that is how she was at home If she is able to keep her oxygen level maintained and we are able to bring her O2 requirement down to 5 to 6 L, will plan to send her to a assisted Vitals/I&O/Wt Last Vital Signs Temp 98.3 F 01/05/21 11:41 Pulse 94 01/05/21 11:41 Resp 13 01/05/21 11:41 BP 89/55 01/05/21 11:41 Pulse Ox 92 01/05/21 11:41 01/04/21 01/05/21 01/05/21 22:59 06:59 14:59 Intake Total 600 / 600 Balance 600 / 600 Physical Exam Narrative: EXAM NARRATIVE: Patient laying in her bed saturating 92% on heated high flow 60% 40 L Very lethargic and fatigued No neurological deficits however she is able to grab onto the nearby class and Ensure bottles No active neurological deficit noted from yesterday S1, S2 sinus rhythm Abdomen soft Lower extremity no edema She does have some cushioning around her heels because she is not able to get out of bed and sit in a chair because of her lethargy and fatigue Muscle mass loss Data : 01/05/21 05:19 01/05/21 05:19 Micro: Microbiology 12/29/20 17:00 Blood Culture - Final Blood Coagulase negativ staphylococc A&P Assessment and plan (1) Diabetes: Status: Chronic Qualifiers: Diabetes mellitus type: type 2 Diabetes mellitus terminal operations manager insulin use: with terminal operations manager use Diabetes mellitus complication status: with hyperglycemia Qualified Code(s): E11.65 - Type 2 diabetes mellitus with hyperglycemia; Z79.4 - longterm (current) use of insulin (2) UTI (urinary tract infection): Status: Acute Qualifiers: Urinary tract infection type: acute pyelonephritis Qualified Code(s): N10 - Acute pyelonephritis (3) Pneumonia due to COVID-19 virus: Status: Acute (4) Dementia: Status: Chronic Qualifiers: Dementia type: unspecified type Dementia behavioral disturbance: without behavioral disturbance Qualified Code(s): F03.90 - Unspecified dementia without behavioral disturbance (5) Atrial fibrillation: Status: Chronic Qualifiers: Atrial fibrillation type: unspecified chronic Qualified Code(s): I48.20 - Chronic atrial fibrillation, unspecified Additional A&P Information Acute hypoxic respiratory failure Severe ARDS COVID-19 wean off oxygen, today heated high flow 60%, 40 L, patient was able to maintain saturation 90% Cut back on her steroids, day 8 Status post remdesivir Received empirical antibiotics in the hospital as well CTA ruled in PE, she was started on therapeutic dose of Lovenox yesterday, no signs of DVT Dementia: Patient seems to be at baseline, I did verify with the family at home she was sitting in sedentary lifestyle, she would hardly communicate had poor p.o. intake, UTI: Finished Zosyn DNR/DNI Consistent carb diet: Moderate dose sliding scale Patient has poor p.o. intake, I would not schedule her for short acting insulin, will titrate Lantus Guarded prognosis Will need assisted placement once ready Family updated Attestations Medical Necessity Statement*: Patient will need assisted once ready currently she is on 60%, 40 L Time Spent in Patient Care: 16 - 35 minutes Coding Level of Care Code Acute Cardiothoracic Surgeon for [facility] Fwd Diagnoses Diabetes E11.65; Z79.4 Diabetes mellitus type: type 2 Diabetes mellitus half-way insulin use: with half-way use Diabetes mellitus complication status: with hyperglycemia UTI (urinary tract infection) N10 Urinary tract infection type: acute pyelonephritis Pneumonia due to COVID-19 virus U07.1; J12.82 Dementia F03.90 Dementia type: unspecified type Dementia behavioral disturbance: without behavioral disturbance Atrial fibrillation I48.20 Atrial fibrillation type: unspecified chronic
[2021-01-05] MEDS: sodium chloride 0.9% 1,000 ML 30 ML IV (14:09)
--- NOTE | 2021-01-05 15:55 | PC.SOCIAL ---
IMM Update pg 2 of IMM updated w/ patients [id number] via telephone.
[2021-01-05 16:49] LABS: Glucose Point of Care 202 mg/dL (70-110)
[2021-01-05 21:33] LABS: Glucose Point of Care 107 mg/dL (70-110)
[2021-01-05] MEDS: insulin glargine 100 units/1 mL 8 UNIT SUBCUT (21:52)
[2021-01-06] VITALS (15 sets, daily range): BP systolic 106–128; BP diastolic 54–85; PULSE 83–99; RESP 17–27; TEMP 36.7–37.2; O2SAT 86–94
[2021-01-06] MEDS: famotidine 20 mg/2 mL INJ IVP ×2 (01:56→16:44)
[2021-01-06] MEDS: enoxaparin 60 mg/0.6 mL Syringe SUBCUT ×2 (04:10→16:44)
[2021-01-06] MEDS: dexamethasone 4 mg/mL INJ 3 MG IVP (04:11)
[2021-01-06 06:42] LABS: Glucose Point of Care 109 mg/dL (70-110)
[2021-01-06 06:55] LABS: Basophils % 0.1 %; Eosinophils # 0.1 10^3/uL (0.0-0.8); Eosinophils % 0.6 %; Hematocrit 38.8 % (37.0-47.0); Lymphocytes # 1.3 10^3/uL (0.8-4.8); Mean Corpuscular HGB Conc 30.9 g/dL (30.0-36.0); Mean Corpuscular Hemoglobin 29.1 pg (28.0-34.0); Mean Corpuscular Volume 93.9 fl (81-99); Mean Platelet Volume 12.3 fL (7.4-10.4); Neutrophils % 77.7 %; Nucleated Red Blood Cells % 0 %; Platelet Count 228 10^3/cmm (130-400); Red Blood Count 4.13 10^6/uL (4.1-5.3); Red Cell Distribution Width 16.9 % (12.1-15.1); White Blood Count 10.8 10^3/uL (4.0-10.0)
[2021-01-06 07:29] LABS: Blood Urea Nitrogen 24 mg/dL (8-23); Calcium 7.9 mg/dL (8.5-10.5); Carbon Dioxide 20 mmol/L (22-29); Chloride 110 mmol/L (98-107); Glucose 108 mg/dL (65-115); Osmolality Calculated 297 mOsm/kg (285-295); Sodium 141 mmol/L (136-145)
[2021-01-06 07:32] LABS: Anion Gap 15.5 (5-19); Potassium 4.5 mmol/L (3.5-5.1)
[2021-01-06 07:35] LABS: Procalcitonin 0.13 ng/mL (0-0.5)
[2021-01-06] MEDS: docusate sodium 100 mg Capsule PO ×2 (08:35→17:54)
--- NOTE | 2021-01-06 09:29 | P.PN_ITS ---
Subjective Subjective: Interval history: Overnight patient has stayed on heated high flow 45L 60% but this morning her oxygen requirement has worsened and now she is requiring 80% Patient is just not motivated at all to get out of bed I have requested physical therapy to see her, encourage patient for proning and getting out of bed to chair She is only drinking Ensure Not complaining of any shortness of breath or chest pain Family updated yesterday Vitals/I&O/Wt Last Vital Signs Temp 98.2 F 01/06/21 04:00 Pulse 83 01/06/21 07:23 Resp 22 H 01/06/21 07:23 BP 128/72 01/06/21 04:00 Pulse Ox 89 L 01/06/21 07:23 01/05/21 01/06/21 01/06/21 22:59 06:59 14:59 Intake Total 120 / 720 1240 / 1240 Balance 120 / 720 1240 / 1240 Physical Exam Narrative: EXAM NARRATIVE: elderly female who is lethargic and fatigued staying in bed not motivated I will get out of bed Open her eyes, does make eye contact from time to time otherwise keeps her eyes closed No active neurological deficit She has weight offloading dressing on her heels bilaterally Variable S1-S2 no sign of congestive heart failure Diminished bilateral breath sounds with rhonchi Heated high flow 80% Abdomen soft EOMI, PERRLA Awake alert oriented x3 fatigued and lethargic Nurse at the bedside Data : 01/06/21 06:05 01/06/21 06:05 A&P Assessment and plan (1) Diabetes: Status: Chronic Qualifiers: Diabetes mellitus type: type 2 Diabetes mellitus penitentiary insulin use: with penitentiary use Diabetes mellitus complication status: with hyperglycemia Qualified Code(s): E11.65 - Type 2 diabetes mellitus with hyperglycemia; Z79.4 - equipment operator intermodal yard (current) use of insulin (2) Pneumonia due to COVID-19 virus: Status: Acute (3) UTI (urinary tract infection): Status: Acute Qualifiers: Urinary tract infection type: acute pyelonephritis Qualified Code(s): N10 - Acute pyelonephritis (4) Atrial fibrillation: Status: Chronic Qualifiers: Atrial fibrillation type: unspecified chronic Qualified Code(s): I48.20 - Chronic atrial fibrillation, unspecified (5) Dementia: Status: Chronic Qualifiers: Dementia type: unspecified type Dementia behavioral disturbance: without behavioral disturbance Qualified Code(s): F03.90 - Unspecified dementia without behavioral disturbance Additional A&P Information Hypoxic restaurant failure related to COVID-19 pneumonia ARDS Heated high flow requiring 80% increased from 60% yesterday, encourage patient for proning and getting out of bed to chair Requested physical therapy Reduce Decadron to 3 mg CTA positive for PE currently on therapeutic dose of Lovenox s/p remdesivir course Respiratory therapist updated to keep trying to wean her oxygen requirement of today at rest she is requiring 80% however overnight she was doing well at 60%, reevaluate today Dementia: Patient was leading a sedentary lifestyle, her p.o. intake was poor at home, does not communicate very well with her family and this has gotten worse with Covid and of her UTI: Status post Zosyn DNR/DNI Consistent carb diet sliding scale Will update family today as well Attestations Medical Necessity Statement*: Continue management for hypoxia related to COVID-19 Time Spent in Patient Care: less than 15 minutes Coding Level of Care Code Acute Reversal Print Inspector for g Fwd Diagnoses Diabetes E11.65; Z79.4 Diabetes mellitus type: type 2 Diabetes mellitus long term care social worker insulin use: with penitentiary use Diabetes mellitus complication status: with hyperglycemia Pneumonia due to COVID-19 virus U07.1; J12.82 UTI (urinary tract infection) N10 Urinary tract infection type: acute pyelonephritis Atrial fibrillation I48.20 Atrial fibrillation type: unspecified chronic Dementia F03.90 Dementia type: unspecified type Dementia behavioral disturbance: without behavioral disturbance
[2021-01-06] MEDS: methylphenidate 10 mg Tablet 5 MG PO (11:37)
[2021-01-06 11:56] LABS: Glucose Point of Care 153 mg/dL (70-110)
[2021-01-06 11:56] LABS: Glucose Point of Care 292 mg/dL (70-110)
[2021-01-06 17:14] LABS: Glucose Point of Care 151 mg/dL (70-110)
[2021-01-06] MEDS: ascorbic acid 500 mg Tablet PO (17:54)
[2021-01-06 20:03] LABS: Glucose Point of Care 202 mg/dL (70-110)
[2021-01-06] MEDS: ipratropium-albuterol 3 mL Neb INHALATION (21:24)
[2021-01-06] MEDS: insulin glargine 100 units/1 mL 8 UNIT SUBCUT (21:45)
[2021-01-07] VITALS (15 sets, daily range): BP systolic 114–117; BP diastolic 59–79; PULSE 80–102; RESP 20–29; TEMP 36.5–37.1; O2SAT 93–96
[2021-01-07] MEDS: famotidine 20 mg/2 mL INJ IVP ×2 (03:58→15:27)
[2021-01-07] MEDS: dexamethasone 4 mg/mL INJ 3 MG IVP (04:03)
[2021-01-07] MEDS: enoxaparin 60 mg/0.6 mL Syringe SUBCUT ×2 (04:04→15:28)
[2021-01-07 06:35] LABS: Glucose Point of Care 160 mg/dL (70-110)
[2021-01-07 07:05] LABS: Anion Gap 12.6 (5-19); Blood Urea Nitrogen 22 mg/dL (8-23); Calcium 8.2 mg/dL (8.5-10.5); Carbon Dioxide 25 mmol/L (22-29); Chloride 110 mmol/L (98-107); Glucose 162 mg/dL (65-115); Osmolality Calculated 303 mOsm/kg (285-295); Potassium 4.6 mmol/L (3.5-5.1); Sodium 143 mmol/L (136-145)
[2021-01-07] MEDS: ascorbic acid 500 mg Tablet PO ×2 (08:43→17:34)
[2021-01-07] MEDS: zinc gluconate 50 mg Tablet PO (08:43)
[2021-01-07] MEDS: docusate sodium 100 mg Capsule PO ×2 (08:43→17:34)
--- NOTE | 2021-01-07 10:32 | PC.SOCIAL ---
IMM Update Pg. 2 of IMM updated and reviewed with patient's daughter in law who verbalized understanding. Initialed, dated, and timed copy in chart.
--- NOTE | 2021-01-07 12:04 | PM.PN ---
Subjective Subjective: Interval history: Patient was complaining of muscle cramps, she had her right hand around her right buttocks She is doing heated high flow 70% 50 L She is agreeable to go to [facility] however her O2 requirement is very high to plan her discharge at this point and unfortunately we have not made any progress in terms of her O2 requirement She did try to get up from bed and sit in a chair and work with physical therapist yesterday Today's the first time she ate solid food, she was given 1 dose of Ritalin yesterday which will be repeated today Vitals/I&O/Wt Last Vital Signs Temp 97.7 F 01/07/21 04:31 Pulse 90 01/07/21 11:19 Resp 20 H 01/07/21 11:19 BP 115/63 01/07/21 04:00 Pulse Ox 93 01/07/21 11:19 Physical Exam Narrative: EXAM NARRATIVE: Patient was moaning in pain with her hand around right buttocks area No ulcer or any kind of skin tear noticed around right buttocks area Her pain did get better when she massaged herself Variable S1, S2 Looks dehydrated She was able to make eye contact today No active neurological deficits Abdomen soft Bowel sound present Bilateral breath sounds with rhonchi Heated high flow 70% 50 L Data : 01/06/21 06:05 01/07/21 06:30 A&P Assessment and plan (1) Diabetes: Status: Chronic Qualifiers: Diabetes mellitus type: type 2 Diabetes mellitus moth exterminator insulin use: with moth exterminator use Diabetes mellitus complication status: with hyperglycemia Qualified Code(s): E11.65 - Type 2 diabetes mellitus with hyperglycemia; Z79.4 - custodial (current) use of insulin (2) UTI (urinary tract infection): Status: Acute Qualifiers: Urinary tract infection type: acute pyelonephritis Qualified Code(s): N10 - Acute pyelonephritis (3) Pneumonia due to COVID-19 virus: Status: Acute (4) Atrial fibrillation: Status: Chronic Qualifiers: Atrial fibrillation type: unspecified chronic Qualified Code(s): I48.20 - Chronic atrial fibrillation, unspecified (5) Dementia: Status: Chronic Qualifiers: Dementia type: unspecified type Dementia behavioral disturbance: without behavioral disturbance Qualified Code(s): F03.90 - Unspecified dementia without behavioral disturbance (6) Pulmonary embolism: Status: Acute (7) Muscle cramps: Status: Acute Additional A&P Information Persistent hypoxia related to COVID-19 Heated high flow 70%, 50 L Patient was able to work with physical therapy yesterday, she got her bed and sat in the chair for prolonged period of time Stop her steroids today she will finish 9 to 10 days of steroids Status post remdesivir Acute pulmonary embolism Currently on therapeutic Lovenox No signs of DVT UTI: Treated status post antibiotics A. fib without RVR no acute decompensation Dementia Patient is not motivated at all to get out of bed and eat however with use of Ritalin her appetite improved she was able to eat solid food today she got out of bed and sat in a chair yesterday I would like to try 1 more dose and see her response Muscle cramps: Would use Flexeril I do believe this is secondary to staying in the bed for last few days Patient will need [facility] placement once she is ready to be discharged, DNR/DNI Consistent carb diet We will discontinue quarantine after in3-4 days her test was positive on 12/28, will transfer to [facility] after Attestations Medical Necessity Statement*: Continue management for persistent hypoxia Time Spent in Patient Care: less than 15 minutes Coding Level of Care Code Acute Gravure Printing Machinist for g Fwd Diagnoses Diabetes E11.65; Z79.4 Diabetes mellitus type: type 2 Diabetes mellitus moth exterminator insulin use: with moth exterminator use Diabetes mellitus complication status: with hyperglycemia UTI (urinary tract infection) N10 Urinary tract infection type: acute pyelonephritis Pneumonia due to COVID-19 virus U07.1; J12.82 Atrial fibrillation I48.20 Atrial fibrillation type: unspecified chronic Dementia F03.90 Dementia type: unspecified type Dementia behavioral disturbance: without behavioral disturbance Pulmonary embolism I26.99 Muscle cramps R25.2
--- NOTE | 2021-01-07 13:05 | PC.NURSE ---
PTS 1200 ACCU CHECK DID NOT FLOW FROM GLUCOMETER. PTS BLOOD SUGAR WAS 134.
[2021-01-07] MEDS: methylphenidate 10 mg Tablet 5 MG PO (14:24)
--- NOTE | 2021-01-07 16:11 | PC.NUTR ---
Nutrition follow up: Poor po intakes noted, however nurse states pt does consume Glucerna. Recommend increase to QID to provide additional kcal/protein. Recommend provide preferences and encourage/assistance at meals as appropriate. See full RD assessments for further details.
[2021-01-07 17:34] LABS: Glucose Point of Care 192 mg/dL (70-110)
[2021-01-07] MEDS: insulin glargine 100 units/1 mL 8 UNIT SUBCUT (21:45)
[2021-01-07 21:53] LABS: Glucose Point of Care 163 mg/dL (70-110)
[2021-01-08] VITALS (36 sets, daily range): BP systolic 94–136; BP diastolic 47–81; PULSE 67–113; RESP 13–32; TEMP 36.4–36.6; O2SAT 69–100
[2021-01-08] MEDS: enoxaparin 60 mg/0.6 mL Syringe SUBCUT ×2 (03:24→16:21)
[2021-01-08] MEDS: famotidine 20 mg/2 mL INJ IVP ×2 (03:30→16:22)
[2021-01-08] MEDS: acetaminophen 325 mg Tablet 650 MG PO (04:56)
[2021-01-08] MEDS: cyclobenzaprine 10 mg Tablet 5 MG PO (04:56)
[2021-01-08 06:32] LABS: Glucose Point of Care 104 mg/dL (70-110)
--- NOTE | 2021-01-08 08:32 | PC.NURSE ---
iv does have some dried blood. but it is flushing easily.
--- NOTE | 2021-01-08 09:23 | PC.NURSE ---
recieved a phone call from iron olivier; ms zhao daughter. she states she is very upset because she was on hold for 45 minutes and was already upset because her brother got to visit the pt this week. i gave daughter and update and told her i would speak with my charge nurse regarding her concern.
[2021-01-08] MEDS: zinc gluconate 50 mg Tablet PO (09:47)
[2021-01-08] MEDS: ascorbic acid 500 mg Tablet PO ×2 (09:47→17:43)
[2021-01-08] MEDS: docusate sodium 100 mg Capsule PO ×2 (09:47→17:43)
--- NOTE | 2021-01-08 11:35 | PC.NURSE ---
fsbg 186
[2021-01-08 11:36] LABS: Glucose Point of Care 183 mg/dL (70-110)
--- NOTE | 2021-01-08 12:36 | PM.PN ---
Subjective Subjective: Interval history: Patient was seen and examined this morning, she is feeling slightly better in terms of her energy, I do see some improvement with use of Ritalin, she is able to make eye contact and answer my questions with zeal now He did have low FiO2 turned down from 70% to 50% and 50 L she was saturating 92 to 93% patient stating that she has been trying to get out of bed sitting in a chair Vitals/I&O/Wt Last Vital Signs Temp 97.8 F 01/08/21 03:26 Pulse 74 01/08/21 10:19 Resp 20 H 01/08/21 10:19 BP 109/59 01/08/21 08:24 Pulse Ox 95 01/08/21 10:19 01/07/21 01/08/21 01/08/21 22:59 06:59 14:59 Intake Total 360 / 360 860 / 1220 Balance 360 / 360 860 / 1220 Physical Exam Narrative: EXAM NARRATIVE: Patient was laying flat however able to make eye contact her energy does seem palpably better Breakfast at the bedside she had ensure which was half empty S1, S2 variable Clinically looks dehydrated Abdomen soft Lower symmetry no edema Has offloading dressing around her heels Heated high flow 50% 50 L O2 saturation 90-93 Data : 01/06/21 06:05 01/07/21 06:30 A&P Assessment and plan (1) Muscle cramps: Status: Acute (2) Pulmonary embolism: Status: Acute (3) Diabetes: Status: Chronic Qualifiers: Diabetes mellitus type: type 2 Diabetes mellitus microsoft exchange administrator insulin use: with care home use Diabetes mellitus complication status: with hyperglycemia Qualified Code(s): E11.65 - Type 2 diabetes mellitus with hyperglycemia; Z79.4 - senior living (current) use of insulin (4) UTI (urinary tract infection): Status: Acute Qualifiers: Urinary tract infection type: acute pyelonephritis Qualified Code(s): N10 - Acute pyelonephritis (5) Pneumonia due to COVID-19 virus: Status: Acute (6) Atrial fibrillation: Status: Chronic Qualifiers: Atrial fibrillation type: unspecified chronic Qualified Code(s): I48.20 - Chronic atrial fibrillation, unspecified (7) Congestive heart failure: Status: Chronic Qualifiers: Heart failure type: unspecified Heart failure chronicity: chronic Qualified Code(s): I50.9 - Heart failure, unspecified (8) Dementia: Status: Chronic Qualifiers: Dementia type: unspecified type Dementia behavioral disturbance: without behavioral disturbance Qualified Code(s): F03.90 - Unspecified dementia without behavioral disturbance Additional A&P Information Persistent hypoxia related to COVID-19 Heated high flow 50% 50 L Status post remdesivir and steroid regimen continue multivitamins for now We will ask respiratory therapist to wean her oxygen down patient is able to do some kind of activities including out of bed to chair I would keep her on Ritalin for now as I am seeing progress with the She is finishing 25% of her meals A. fib without RVR No active sign of congestive heart failure Dementia with hypoactivity with catatonia: Trial of Ritalin Muscle cramps improved after getting cyclobenzaprine Attestations Medical Necessity Statement*: Plan to discharge to long term once she is down to 4 to 6 L nasal cannula Time Spent in Patient Care: less than 15 minutes Coding Level of Care Code Acute Field Pipelines Supervisor for Chg Fwd Diagnoses Muscle cramps R25.2 Pulmonary embolism I26.99 Diabetes E11.65; Z79.4 Diabetes mellitus type: type 2 Diabetes mellitus care home insulin use: with microsoft exchange administrator use Diabetes mellitus complication status: with hyperglycemia UTI (urinary tract infection) N10 Urinary tract infection type: acute pyelonephritis Pneumonia due to COVID-19 virus U07.1; J12.82 Atrial fibrillation I48.20 Atrial fibrillation type: unspecified chronic Congestive heart failure I50.9 Heart failure type: unspecified Heart failure chronicity: chronic Dementia F03.90 Dementia type: unspecified type Dementia behavioral disturbance: without behavioral disturbance
--- NOTE | 2021-01-08 16:26 | PC.NURSE ---
pt refused to get out of bed for breakfast and lunch. i explained to patient i was going to give her a few more minutes and we were going to get up out of bed. she was resistant and not helpful when cory garnica and i got her up. but tolerated well physically and when pt was asked if she was glad we got up pt stated 'yes i am glad we got out of bed' resp went in shortly after and had decreased her o2 high flow to 35/35. plans to reduce again around 1640. pt still tolerating chair well at this time.
--- NOTE | 2021-01-08 16:31 | PC.NURSE ---
pt states no pain
--- NOTE | 2021-01-08 17:07 | PC.NURSE ---
pt was dry for the non check and was wet at 1600. breif changed when we got her up to the chair.
[2021-01-08] MEDS: methylphenidate 10 mg Tablet 5 MG PO (17:41)
[2021-01-08 17:52] LABS: Glucose Point of Care 104 mg/dL (70-110)
--- NOTE | 2021-01-08 18:30 | PC.RESP ---
RT Shift Note Frequent safety and respiratory rounds continue. Orders completed as indicated. Patient monitored pre and post treatments throughout shift. Patient tolerated treatments appropriately. Condition did not change. Patient and/or data entry representative educated on respiratory treatment and medications. Patient and/or data entry representative verbalized understanding. Will continue to monitor patient progress.
--- NOTE | 2021-01-08 21:13 | PC.NURSE ---
i reported high pulse 113 to nurse
[2021-01-08 21:53] LABS: Glucose Point of Care 160 mg/dL (70-110)
[2021-01-08] MEDS: insulin glargine 100 units/1 mL 8 UNIT SUBCUT (22:29)
[2021-01-09] VITALS (41 sets, daily range): BP systolic 83–119; BP diastolic 43–75; PULSE 85–114; RESP 3–35; TEMP 36.6–37.2; O2SAT 83–98
--- NOTE | 2021-01-09 | PC.NURSE ---
i reported high pulse 109 to nurse
[2021-01-09] MEDS: enoxaparin 60 mg/0.6 mL Syringe SUBCUT (03:32)
[2021-01-09] MEDS: famotidine 20 mg/2 mL INJ IVP ×2 (03:49→18:24)
[2021-01-09 05:38] LABS: Basophils % 0.4 %; Eosinophils # 0.1 10^3/uL (0.0-0.8); Eosinophils % 0.6 %; Hematocrit 32.4 % (37.0-47.0); Hemoglobin 10.7 g/dL (11.5-15.3); Lymphocytes # 0.9 10^3/uL (0.8-4.8); Lymphocytes % 10.2 %; Mean Corpuscular Hemoglobin 29.1 pg (28.0-34.0); Mean Platelet Volume 11.7 fL (7.4-10.4); Monocytes # 0.7 10^3/uL (0.2-0.9); Monocytes % 8.2 %; Neutrophils # 6.76 10^3/uL (1.8-7.7); Neutrophils % 79.8 %; Nucleated Red Blood Cells % 0 %; Platelet Count 228 10^3/cmm (130-400); Red Blood Count 3.68 10^6/uL (4.1-5.3); White Blood Count 8.5 10^3/uL (4.0-10.0)
[2021-01-09 06:10] LABS: Glucose Point of Care 92 mg/dL (70-110)
[2021-01-09 06:11] LABS: Blood Urea Nitrogen 10 mg/dL (8-23); Calcium 8.3 mg/dL (8.5-10.5); Carbon Dioxide 24 mmol/L (22-29); Chloride 105 mmol/L (98-107); Glucose 81 mg/dL (65-115); Osmolality Calculated 282 mOsm/kg (285-295); Sodium 137 mmol/L (136-145)
[2021-01-09] MEDS: predniSONE 10 mg Tablet PO (08:07)
[2021-01-09] MEDS: ascorbic acid 500 mg Tablet PO ×2 (08:08→18:25)
[2021-01-09] MEDS: methylphenidate 10 mg Tablet 5 MG PO ×2 (08:08→18:25)
[2021-01-09] MEDS: docusate sodium 100 mg Capsule PO ×2 (08:08→18:25)
[2021-01-09] MEDS: zinc gluconate 50 mg Tablet PO (08:08)
--- NOTE | 2021-01-09 08:43 | PC.SOCIAL ---
IMM update IMM updated with patient's son. Verbalized an understanding. Intialled, dated, timed, and placed in chart.
[2021-01-09] MEDS: ipratropium-albuterol 3 mL Neb INHALATION (10:03)
[2021-01-09 11:00] LABS: Slide Review Slide Review Perform
--- NOTE | 2021-01-09 11:48 | PC.NURSE ---
Respiratory Rate on monitor is not accurate.
[2021-01-09 12:08] LABS: Glucose Point of Care 250 mg/dL (70-110)
--- NOTE | 2021-01-09 13:08 | PM.PN ---
Subjective Subjective: Interval history: Patient is getting Ritalin, endorsing improvement in energy, able to communicate with the nursing staff, as per the nursing staff she looks like a totally different person now because of her increased mood and energy Patient is stating that she is willing to go to skilled nursing currently she is saturating well on 4 L nasal cannula Vitals/I&O/Wt Last Vital Signs Temp 98.9 F 01/09/21 11:52 Pulse 105 H 01/09/21 11:30 Resp 18 01/09/21 11:52 BP 97/51 01/09/21 11:30 Pulse Ox 91 01/09/21 11:30 01/08/21 01/09/21 01/09/21 22:59 06:59 14:59 Intake Total 212 / Balance Physical Exam Narrative: EXAM NARRATIVE: Patient lying comfortably in her bed saturating well on 4 L nasal cannula Breakfast tray at the bedside, she had only ate a little bit today Not complaining of cramps No neurological deficit Able to answer my questions appropriately S1, S2 Abdomen soft Bilateral breath sounds without audible stridor or wheezing Data : 01/09/21 05:22 01/09/21 05:22 A&P Assessment and plan (1) Muscle cramps: Status: Acute (2) Pulmonary embolism: Status: Acute (3) Diabetes: Status: Chronic Qualifiers: Diabetes mellitus type: type 2 Diabetes mellitus termite control servicer insulin use: with senior care use Diabetes mellitus complication status: with hyperglycemia Qualified Code(s): E11.65 - Type 2 diabetes mellitus with hyperglycemia; Z79.4 - senior living (current) use of insulin (4) UTI (urinary tract infection): Status: Acute Qualifiers: Urinary tract infection type: acute pyelonephritis Qualified Code(s): N10 - Acute pyelonephritis (5) Pneumonia due to COVID-19 virus: Status: Acute (6) COVID-19 vaccine dose not administered: Status: Acute (7) Atrial fibrillation: Status: Chronic Qualifiers: Atrial fibrillation type: unspecified chronic Qualified Code(s): I48.20 - Chronic atrial fibrillation, unspecified (8) Congestive heart failure: Status: Chronic Qualifiers: Heart failure type: unspecified Heart failure chronicity: chronic Qualified Code(s): I50.9 - Heart failure, unspecified (9) Dementia: Status: Chronic Qualifiers: Dementia type: unspecified type Dementia behavioral disturbance: without behavioral disturbance Qualified Code(s): F03.90 - Unspecified dementia without behavioral disturbance Additional A&P Information Patient currently saturating well on 4 L nasal cannula . Discontinue steroids, she received prednisone in last 3 days Continue Ritalin for improvement of energy and fatigue merchandise manager updated who would start authorization process to send her to a nursing facility Acute PE: Switch to Eliquis Antihypertensives on hold due to low blood pressure which is secondary to poor p.o. intake CBC BMP is unremarkable Dementia Hyperactive delirium On trial of Ritalin which seems to be showing some improvement on daily basis DNR/DNI Consistent carb diet Attestations Medical Necessity Statement*: Anticipating discharge to nursing facility Time Spent in Patient Care: less than 15 minutes Coding Level of Care Code Acute Language Arts Teacher for Chg Fwd Diagnoses Muscle cramps R25.2 Pulmonary embolism I26.99 Diabetes E11.65; Z79.4 Diabetes mellitus type: type 2 Diabetes mellitus senior care insulin use: with senior care use Diabetes mellitus complication status: with hyperglycemia UTI (urinary tract infection) N10 Urinary tract infection type: acute pyelonephritis Pneumonia due to COVID-19 virus U07.1; J12.82 COVID-19 vaccine dose not administered Z28.9 Atrial fibrillation I48.20 Atrial fibrillation type: unspecified chronic Congestive heart failure I50.9 Heart failure type: unspecified Heart failure chronicity: chronic Dementia F03.90 Dementia type: unspecified type Dementia behavioral disturbance: without behavioral disturbance
[2021-01-09 17:30] LABS: Glucose Point of Care 213 mg/dL (70-110)
[2021-01-09 20:56] LABS: Glucose Point of Care 133 mg/dL (70-110)
[2021-01-09] MEDS: apixaban 5 mg Tablet PO (21:24)
[2021-01-09] MEDS: insulin glargine 100 units/1 mL 4 UNIT SUBCUT (21:28)
[2021-01-10] VITALS (37 sets, daily range): BP systolic 88–141; BP diastolic 56–78; PULSE 73–110; RESP 19–35; TEMP 36.5–37.3; O2SAT 73–98
--- NOTE | 2021-01-10 02:13 | ECG_ITS ---
[facility] Test Date: 2021-01-10 Pat Name: Tracie Tejeda Department: Room: 202 Gender: Female Past Due Accounts Clerk: : [id number] Requested By: Yovana Curran Order Number: [id number] Reading MD: James Escoto M.D. Measurements Intervals [place] Rate: 97 P: [place]: QRS: 168 QRSD: 94 T: 175 QT: 374 QTc: 477 Interpretive Statements SUPRAVENTRICULAR RHYTHM RIGHT AXIS DEVIATION [QRS AXIS > 100] MODERATE T-WAVE ABNORMALITY, CONSIDER ANTERIOR ISCHEMIA [-0.1+ mV T WAVE IN V3/V4] Compared to ECG 01/03/2021 17:20:52 Supraventricular rhythm now present Right-axis deviation now present Possible ischemia now present Sinus rhythm no longer present Ventricular premature complex(es) no longer present T-wave abnormality still present Electronically Signed On 01-10-2021 19:47:32 CDT by James Escoto M.D. [id number]
[2021-01-10] MEDS: metoprolol tartrate 25 mg Tablet 12.5 MG PO (02:25)
[2021-01-10 02:55] LABS: Troponin T (5th) Once 24 ng/L (0-10)
[2021-01-10 02:56] LABS: Alanine Aminotransferase 21 U/L (0-33); Albumin Level 2.1 g/dL (3.5-5.2); Alkaline Phosphatase 127 IU/L (35-105); Anion Gap 12.8 (5-19); Aspartate Amino Transferase 18 U/L (0-32); Blood Urea Nitrogen 9 mg/dL (8-23); Calcium 8.4 mg/dL (8.5-10.5); Carbon Dioxide 23 mmol/L (22-29); Chloride 104 mmol/L (98-107); Globulin 3.6 g/dL (1.3-4.6); Glucose 73 mg/dL (65-115); Magnesium 1.8 mg/dL (1.7-2.3); Osmolality Calculated 279 mOsm/kg (285-295); Potassium 3.8 mmol/L (3.5-5.1); Sodium 136 mmol/L (136-145); Total Bilirubin 0.4 mg/dL (0.15-1.2); Total Protein 5.7 g/dL (6.6-8.7)
[2021-01-10] MEDS: famotidine 20 mg/2 mL INJ IVP ×2 (03:28→17:09)
[2021-01-10 06:40] LABS: Glucose Point of Care 119 mg/dL (70-110)
--- NOTE | 2021-01-10 06:42 | PC.NURSE ---
At approximately 0207 patient experienced a 9 beat run of vtac. physician notified and new orders received.
[2021-01-10] MEDS: apixaban 5 mg Tablet PO ×2 (08:42→20:24)
[2021-01-10] MEDS: ascorbic acid 500 mg Tablet PO ×2 (08:42→17:10)
[2021-01-10] MEDS: zinc gluconate 50 mg Tablet PO (08:42)
[2021-01-10] MEDS: docusate sodium 100 mg Capsule PO ×2 (08:42→17:10)
[2021-01-10] MEDS: metoprolol tartrate 1 mg/1 mL SDV 5 mL 5 MG IVP (10:35)
[2021-01-10] MEDS: ipratropium-albuterol 3 mL Neb INHALATION (11:03)
--- NOTE | 2021-01-10 11:20 | PC.RESP ---
Pt pulled nasal cannula off, unable to recover despite turning o2 up to 15lpm. Pt placed on nrb, sats 92%.
--- NOTE | 2021-01-10 11:57 | ECG_ITS ---
[facility] Test Date: 2021-01-10 Pat Name: Tracie Tejeda Department: Room: 202 Gender: Female Annealing Furnace Operator: : [id number] Requested By: Jacqui Delcid Order Number: [id number] Swati MD: James Escoto M.D. Measurements Intervals [place] Rate: 110 P: [place]: QRS: 175 QRSD: 145 T: 29 QT: 380 QTc: 514 Interpretive Statements ATRIAL FIBRILLATION WITH RAPID VENTRICULAR RESPONSE INTRAVENTRICULAR CONDUCTION DELAY [130+ ms QRS DURATION] LATERAL MYOCARDIAL INFARCTION , OF INDETERMINATE AGE [40+ ms Q WAVE AND/OR ST/T ABNORMALITY IN I/aVL/V5/V6] TYPE 3 BRUGADA PATTERN (NON-DIAGNOSTIC) [COVED/SADDLEBACK ST ELEVATION > 0.1mV IN 2 OF V1-3] Compared to ECG 01/10/2021 02:22:21 Intraventricular conduction delay now present Myocardial infarct finding now present ST (T wave) deviation now present Supraventricular rhythm no longer present Right-axis deviation no longer present Possible ischemia no longer present Electronically Signed On 01-10-2021 19:47:20 CDT by James Escoto M.D. [id number]
[2021-01-10 12:27] LABS: Glucose Point of Care 172 mg/dL (70-110)
--- NOTE | 2021-01-10 12:42 | PM.PN ---
Subjective Subjective: Interval history: Patient was seen and examined this morning, her O2 requirement has been increased to 10 L overnight this morning she was in A. fib RVR heart rate fluctuating between 120s to 130s, she was given metoprolol 5 mg IV push her p.o. metoprolol was on hold secondary to low blood pressure for last 5 to 7 days Ritalin was added which seemed to improved her energy and mood Vitals/I&O/Wt Last Vital Signs Temp 97.7 F 01/10/21 12:00 Pulse 104 H 01/10/21 12:00 Resp 34 H 01/10/21 12:00 BP 100/60 01/10/21 12:00 Pulse Ox 92 01/10/21 12:00 Physical Exam Narrative: EXAM NARRATIVE: Patient was laying comfortably in her bed however her heart rate was in 150s and rhythm was A. fib She was not complaining of active chest pain, she was saturating well on 10 L nasal cannula saturation 89 to 91% Abdomen soft, bowel sound present Patient is awake and alert oriented to time place and person No active neurological deficits Data : 01/09/21 05:22 01/10/21 02:28 A&P Assessment and plan (1) Muscle cramps: Status: Acute (2) Pulmonary embolism: Status: Acute (3) Diabetes: Status: Chronic Qualifiers: Diabetes mellitus type: type 2 Diabetes mellitus shelter insulin use: with intermodal owner operator truck driver use Diabetes mellitus complication status: with hyperglycemia Qualified Code(s): E11.65 - Type 2 diabetes mellitus with hyperglycemia; Z79.4 - residential (current) use of insulin (4) UTI (urinary tract infection): Status: Acute Qualifiers: Urinary tract infection type: acute pyelonephritis Qualified Code(s): N10 - Acute pyelonephritis (5) Pneumonia due to COVID-19 virus: Status: Acute (6) Atrial fibrillation: Status: Chronic Qualifiers: Atrial fibrillation type: unspecified chronic Qualified Code(s): I48.20 - Chronic atrial fibrillation, unspecified (7) Congestive heart failure: Status: Chronic Qualifiers: Heart failure type: unspecified Heart failure chronicity: chronic Qualified Code(s): I50.9 - Heart failure, unspecified (8) Dementia: Status: Chronic Qualifiers: Dementia type: unspecified type Dementia behavioral disturbance: without behavioral disturbance Qualified Code(s): F03.90 - Unspecified dementia without behavioral disturbance Additional A&P Information Persistent hypoxia related to COVID-19 ARDS Currently on cannula 10L Asked respiratory therapist to wean off her oxygen down to 6 L and see how she does today I am hopeful she will be able to go to [facility] in next 24 to 48 hours Her mood and energy has improved, she is able to finish 30% of her meals, she is try to get out of bed sit in a chair Acute pulmonary embolism I have started Eliquis and discontinue Lovenox A. fib with RVR IV push of metoprolol given today, resume metoprolol p.o. regimen Diabetes: Euglycemic UTI: Resolved status post antibiotics Congestive heart failure looks euvolemic DNR/DNI Plan to discharge to [facility] Attestations Medical Necessity Statement*: Plan to discharge her to [facility] next 48 hours, Time Spent in Patient Care: 16 - 35 minutes Coding Level of Care Code Acute Supervising Film Or Videotape Editor for g Fwd Diagnoses Muscle cramps R25.2 Pulmonary embolism I26.99 Diabetes E11.65; Z79.4 Diabetes mellitus type: type 2 Diabetes mellitus intermodal owner operator truck driver insulin use: with intermodal owner operator truck driver use Diabetes mellitus complication status: with hyperglycemia UTI (urinary tract infection) N10 Urinary tract infection type: acute pyelonephritis Pneumonia due to COVID-19 virus U07.1; J12.82 Atrial fibrillation I48.20 Atrial fibrillation type: unspecified chronic Congestive heart failure I50.9 Heart failure type: unspecified Heart failure chronicity: chronic Dementia F03.90 Dementia type: unspecified type Dementia behavioral disturbance: without behavioral disturbance
[2021-01-10 16:49] LABS: Glucose Point of Care 123 mg/dL (70-110)
[2021-01-10] MEDS: acetaminophen 325 mg Tablet 650 MG PO (17:36)
[2021-01-10 20:18] LABS: Glucose Point of Care 125 mg/dL (70-110)
[2021-01-10] MEDS: insulin glargine 100 units/1 mL 4 UNIT SUBCUT (20:23)
[2021-01-10] MEDS: metoprolol tartrate 25 mg Tablet PO (20:24)
[2021-01-11] VITALS (29 sets, daily range): BP systolic 96–143; BP diastolic 51–94; PULSE 69–116; RESP 17–45; TEMP 36.4–37.2; O2SAT 70–99
--- NOTE | 2021-01-11 01:50 | PC.NURSE ---
patient had episode of anxiety pulled mask off and would not leave it in place o2 sat dropped to sixty percent RT to bedside helped patient to calm down non rebreather placed back on patient o2 sat slowly returned to 90%
[2021-01-11] MEDS: metoprolol tartrate 1 mg/1 mL SDV 5 mL 2.5 MG IVP (02:27)
[2021-01-11] MEDS: famotidine 20 mg/2 mL INJ IVP ×2 (03:37→16:26)
[2021-01-11 04:44] LABS: Basophils % 0.1 %; Eosinophils # 0.1 10^3/uL (0.0-0.8); Eosinophils % 0.3 %; Hematocrit 32.8 % (37.0-47.0); Hemoglobin 10.8 g/dL (11.5-15.3); Lymphocytes # 0.6 10^3/uL (0.8-4.8); Lymphocytes % 3.9 %; Mean Corpuscular HGB Conc 32.9 g/dL (30.0-36.0); Mean Corpuscular Hemoglobin 28.8 pg (28.0-34.0); Mean Corpuscular Volume 87.5 fl (81-99); Mean Platelet Volume 12.7 fL (7.4-10.4); Monocytes # 0.9 10^3/uL (0.2-0.9); Neutrophils # 13.65 10^3/uL (1.8-7.7); Neutrophils % 89.3 %; Nucleated Red Blood Cells % 0 %; Platelet Count 224 10^3/cmm (130-400); Red Blood Count 3.75 10^6/uL (4.1-5.3); Red Cell Distribution Width 15.9 % (12.1-15.1); White Blood Count 15.3 10^3/uL (4.0-10.0)
[2021-01-11 05:21] LABS: Alanine Aminotransferase 25 U/L (0-33); Albumin Level 2.2 g/dL (3.5-5.2); Alkaline Phosphatase 166 IU/L (35-105); Aspartate Amino Transferase 28 U/L (0-32); Blood Urea Nitrogen 11 mg/dL (8-23); Calcium 8.2 mg/dL (8.5-10.5); Carbon Dioxide 23 mmol/L (22-29); Chloride 104 mmol/L (98-107); Globulin 3.5 g/dL (1.3-4.6); Glucose 126 mg/dL (65-115); Magnesium 1.9 mg/dL (1.7-2.3); Osmolality Calculated 287 mOsm/kg (285-295); Sodium 138 mmol/L (136-145); Total Bilirubin 0.4 mg/dL (0.15-1.2); Total Protein 5.7 g/dL (6.6-8.7)
--- NOTE | 2021-01-11 06:16 | PC.NURSE ---
patient is currently resting quietly with mask in place o2 sat 93%
[2021-01-11 06:52] LABS: Glucose Point of Care 141 mg/dL (70-110)
[2021-01-11] MEDS: docusate sodium 100 mg Capsule PO (08:07)
[2021-01-11] MEDS: apixaban 5 mg Tablet PO ×2 (08:07→21:12)
[2021-01-11] MEDS: ascorbic acid 500 mg Tablet PO (08:07)
[2021-01-11] MEDS: zinc gluconate 50 mg Tablet PO (08:07)
[2021-01-11] MEDS: metoprolol tartrate 25 mg Tablet PO ×2 (08:08→21:15)
[2021-01-11] MEDS: acetaminophen 325 mg Tablet 650 MG PO ×2 (08:08→15:57)
--- NOTE | 2021-01-11 08:41 | PC.CHAP ---
Pastoral Care Encounter/Spiritual Assessment Type of Contact [] Declined shirt cleaner visit [] Patient/Family/Request visit [] Outpatient visit [] Follow-up visit [] Physician referral [] Code/Alert [x] Routine visit [] Staff referral [] Actively dying [] Patient sleeping [] Family support [] [] Out of room [] Palliative care [] [] Receiving care in room [] Pre-surgical visit [] Trauma [] Long length of stay [] ICU visit [x] Other: 2a served breakfast Relational/Emotional Strength [] Patient feels connected with others/family/visitors/staff [] Distress [] Loneliness/isolation [] Abandonment Spirituality of Patient [] Person of Alina [] Attends Taoist of their Alina [] Believes in Prayer [] Reads Bible or Yazdanism materials [] There are Spiritual issues to be addressed Best Worker Interventions [x] Prayer [] Active listening [] Non-anxious presence [] Spiritual/emotional support [] Crisis/trauma care [] Spiritual counseling [] Bereavement support [] Provided bereavement packet [] Provided Bible/devotional materials [] Provided toy/stuffed animal, coloring book to patient or family member [] Provided Communion [] Anointing/[place] [] Salvation [x] Completed spiritual assessment [] Other: Impact on Illness or Injury [] Angry [] Fearful [] Anxious [] Often cries [] Exhaustion [] Unable to work [] Unable to attend yarsani [] Unable to walk/stand [] Unable to read [] Unable to drive [] Unable to eat/drink [] Unable to sleep [] Unable to be with family [] Patient intubated [] Other: Summary Time spent with patient
--- NOTE | 2021-01-11 09:11 | PC.SOCIAL ---
IMM Update Pg. 2 of IMM Updated. Voicemail left for patient's son. Initialed, dated, and timed copy in chart.
[2021-01-11 10:47] LABS: Glucose Point of Care 176 mg/dL (70-110)
--- NOTE | 2021-01-11 12:36 | PC.SOCIAL ---
IMM Update Pg. 2of IMM updated and reviewed with patient's son over the phone.
--- NOTE | 2021-01-11 16:04 | P.PN_ITS ---
Subjective Subjective: Interval history: Patient was seen and examined in the Covid unit This morning patient was very pleasant and cooperative she was wide-awake and energy seemed much better However O2 requirement has worsened to 12 L O2 saturation has not improved above 90% decision was made to put on heated high flow again Ritalin was used to improve her energy, I would discontinue as her heart rate is fluctuating between 95-105 A. fib RVR, given metoprolol IV push, EKG showed A. fib with left bundle branch block on telemetry it shows wide-complex tachycardia I told the nurses it is not V. tach it is A. fib with aberrant conduction manager of administration will start authorization process once she is doing well between 4 to 6 L nasal cannula Tried to get in touch with the family, left a voicemail Vitals/I&O/Wt Last Vital Signs Temp 97.9 F 01/11/21 12:00 Pulse 90 01/11/21 15:11 Resp 20 H 01/11/21 15:11 BP 107/60 01/11/21 12:00 Pulse Ox 92 01/11/21 15:11 01/11/21 01/11/21 01/11/21 06:59 14:59 22:59 Intake Total 150 / 150 720 / 720 Balance 150 / 150 720 / 720 Physical Exam Narrative: EXAM NARRATIVE: Patient was laying comfortably in her bed no active chest pain or shortness of breath however on 12 L O2 saturation was 86 to 87% S1, S2 variable without any signs of congestive heart failure Abdomen soft Lower extremity no edema When I discussed if I could discuss her status with her family she stated no: And asked her why she replied - my son would keep me in the hospital She is awake and alert no neurological deficits Bilateral breath sounds with rhonchi at the bases Her appetite has slightly improved Data : 01/11/21 03:41 01/11/21 03:41 A&P Assessment and plan (1) Muscle cramps: Status: Acute (2) Pulmonary embolism: Status: Acute (3) Diabetes: Status: Chronic Qualifiers: Diabetes mellitus type: type 2 Diabetes mellitus local intermodal truck driver insulin use: with senior living use Diabetes mellitus complication status: with hyperglycemia Qualified Code(s): E11.65 - Type 2 diabetes mellitus with hyperglycemia; Z79.4 - custodial (current) use of insulin (4) UTI (urinary tract infection): Status: Acute Qualifiers: Urinary tract infection type: acute pyelonephritis Qualified Code(s): N10 - Acute pyelonephritis (5) Pneumonia due to COVID-19 virus: Status: Acute (6) Atrial fibrillation: Status: Chronic Qualifiers: Atrial fibrillation type: unspecified chronic Qualified Code(s): I48.20 - Chronic atrial fibrillation, unspecified (7) Dementia: Status: Chronic Qualifiers: Dementia type: unspecified type Dementia behavioral disturbance: without behavioral disturbance Qualified Code(s): F03.90 - Unspecified dementia without behavioral disturbance Additional A&P Information Persistent hypoxia related to COVID-19 ARDS O2 requirement worsening currently on heated high flow Energy did improve with Ritalin however I am discontinuing because of her tachyarrhythmia Finished remdesivir and Decadron I would keep her on multivitamins for now onwards She has been afebrile, I would not add any antibiotics at this point Daily trials to wean her oxygen down, out of bed to chair, Proning Acute pulmonary embolism Currently on Eliquis Diabetes: Euglycemic UTI status post treatment A. fib with RVR given IV labetalol today Dementia Her hypoactive delirium secondary to COVID-19 has slightly improved with Ritalin however I would not continue this medication As per my discussion with the family at home her p.o. intake was poor she was not very mobile was leading a sedentary lifestyle, would communicate minimally Muscle cramps improved with use of cyclobenzaprine and getting out of bed to chair and physical therapy Disposition plan: She will be discharged to a fdc once O2 requirement is between 4 to 6 L nasal cannula, case filler are aware Left a voicemail to the family today when I tried to give them an update DNR/DNI Consistent carb diet Will not need isolation after 5 days will finish 20 days Attestations Medical Necessity Statement*: Persistent hypoxia, continue management in the Covid unit and transfer out of Covid unit after 5 days if she stays for that long Time Spent in Patient Care: less than 15 minutes Coding Level of Care Code Acute Sales And Merchandising Associate for Ruth Fwd Diagnoses Muscle cramps R25.2 Pulmonary embolism I26.99 Diabetes E11.65; Z79.4 Diabetes mellitus type: type 2 Diabetes mellitus local intermodal truck driver insulin use: with senior living use Diabetes mellitus complication status: with hyperglycemia UTI (urinary tract infection) N10 Urinary tract infection type: acute pyelonephritis Pneumonia due to COVID-19 virus U07.1; J12.82 Atrial fibrillation I48.20 Atrial fibrillation type: unspecified chronic Dementia F03.90 Dementia type: unspecified type Dementia behavioral disturbance: without behavioral disturbance
--- NOTE | 2021-01-11 16:18 | XRR_ITS ---
PROCEDURE INFORMATION: Exam: XR Chest Exam date and time: 01/11/2021 4:18 PM Age: 80 years old Clinical indication: Prior surgery; Surgery type: Low o2 stats, hypoxia, covid +, weak TECHNIQUE: Imaging protocol: XR of the chest. Views: 1 view. COMPARISON: CR XR chest 1V portable [id number] 01/01/2021 6:29 AM FINDINGS: Lungs: Patulous consolidations within both lungs with air bronchograms. Pleural spaces: Unremarkable. No pleural effusion. No pneumothorax. Heart/Mediastinum: Unremarkable. No cardiomegaly. Bones/joints: Visualized osseous structures are intact. XR/XR chest 1V portable [id number] IMPRESSION: Patulous consolidations within both lungs suspicious for multifocal pneumonia. This is not significantly changed from prior exam.
--- NOTE | 2021-01-11 16:19 | ECG_ITS ---
[facility] Test Date: 2021-01-11 Pat Name: Tracie Tejeda Department: Room: 202 Gender: Female Moving Consultant: : [id number] Requested By: Jacqui Delcid Order Number: [id number] Swati MD: James Escoto M.D. Measurements Intervals [place] Rate: 114 P: 70 GA: 140 QRS: 3 QRSD: 144 T: 139 QT: 372 QTc: 513 Interpretive Statements SINUS TACHYCARDIA LEFT BUNDLE BRANCH BLOCK [120+ ms QRS DURATION, 80+ ms Q/S IN V1/V2, 85+ ms R IN I/aVL/V5/V6] Compared to ECG 01/10/2021 09:27:26 Left bundle-branch block now present Atrial fibrillation no longer present Intraventricular conduction delay no longer present Myocardial infarct finding no longer present ST (T wave) deviation no longer present Electronically Signed On 01-11-2021 19:30:23 CDT by James Escoto M.D. [id number]
[2021-01-11] MEDS: labetalol 5 mg/mL SDV 20mL 10 MG IVP (16:28)
[2021-01-11 18:15] LABS: Glucose Point of Care 307 mg/dL (70-110)
[2021-01-11 20:38] LABS: Glucose Point of Care 164 mg/dL (70-110)
[2021-01-11] MEDS: insulin glargine 100 units/1 mL 4 UNIT SUBCUT (21:16)
[2021-01-11] MEDS: morphine 4 mg/mL SDV 1 mL 1 MG IVP (21:59)
[2021-01-11 23:14] LABS: ABG PCO2 36.6 mmHg (35-45); ABG PH Result 7.44 (7.35-7.45); Arterial Blood Gas Hematocrit 32.4 % (37-47); Base Excess ABG 0.5 mmol/L (-2.0-2.0); Blood Gas Allen Test Pos; Blood Gas Sample Site Radial, right; Blood Gas Sample Type Arterial; HCO3 ABG 24.6 mmol/L (22-26); Oxygen Device NRB; PO2 ABG 64.1 mmHg (80.0-100.0)
[2021-01-12] VITALS (29 sets, daily range): BP systolic 102–122; BP diastolic 55–83; PULSE 86–120; RESP 16–50; TEMP 36.6–37.6; O2SAT 85–94
[2021-01-12] MEDS: famotidine 20 mg/2 mL INJ IVP ×2 (04:43→14:58)
[2021-01-12] MEDS: morphine 4 mg/mL SDV 1 mL 1 MG IVP ×2 (05:46→19:22)
--- NOTE | 2021-01-12 06:00 | PC.NURSE ---
Shift Note Frequent safety and comfort rounds continue. Pt was agitated/restless throughout the night. was notified and orders and/or nursing care completed as indicated. Patient monitored for response to intervention and treatment(s). Education provided includes morphine. Patient needs reinforcement. Will continue to monitor.
[2021-01-12 06:26] LABS: Basophils % 0.2 %; Eosinophils % 0.2 %; Hematocrit 31.1 % (37.0-47.0); Hemoglobin 10.1 g/dL (11.5-15.3); Lymphocytes # 0.9 10^3/uL (0.8-4.8); Lymphocytes % 6.9 %; Mean Corpuscular HGB Conc 32.5 g/dL (30.0-36.0); Mean Corpuscular Hemoglobin 28.8 pg (28.0-34.0); Mean Corpuscular Volume 88.6 fl (81-99); Mean Platelet Volume 12.4 fL (7.4-10.4); Monocytes # 0.7 10^3/uL (0.2-0.9); Monocytes % 5.2 %; Neutrophils # 11.53 10^3/uL (1.8-7.7); Neutrophils % 87.2 %; Nucleated Red Blood Cells % 0 %; Platelet Count 224 10^3/cmm (130-400); Red Blood Count 3.51 10^6/uL (4.1-5.3); Red Cell Distribution Width 16.4 % (12.1-15.1); White Blood Count 13.2 10^3/uL (4.0-10.0)
[2021-01-12 06:49] LABS: Blood Urea Nitrogen 13 mg/dL (8-23); C Reactive Protein 199.4 mg/L (0.0-4.9); Calcium 8.8 mg/dL (8.5-10.5); Carbon Dioxide 22 mmol/L (22-29); Chloride 109 mmol/L (98-107); Glucose 97 mg/dL (65-115); Magnesium 2.1 mg/dL (1.7-2.3); Osmolality Calculated 296 mOsm/kg (285-295); Sodium 143 mmol/L (136-145)
[2021-01-12 06:59] LABS: Anion Gap 16.6 (5-19); Potassium 4.6 mmol/L (3.5-5.1)
[2021-01-12 07:41] LABS: Glucose Point of Care 99 mg/dL (70-110)
--- NOTE | 2021-01-12 08:31 | PC.CHAP ---
Pastoral Care Encounter/Spiritual Assessment Type of Contact [] Declined tub chucker visit [] Patient/Family/Request visit [] Outpatient visit [] Follow-up visit [] Physician referral [] Code/Alert [x] Routine visit [] Staff referral [] Actively dying [x] Patient sleeping [] Family support [] [] Out of room [] Palliative care [] [] Receiving care in room [] Pre-surgical visit [] Trauma [] Long length of stay [] ICU visit [x] Other: 2a served breakfast... sitter present Relational/Emotional Strength [] Patient feels connected with others/family/visitors/staff [] Distress [] Loneliness/isolation [] Abandonment Spirituality of Patient [] Person of Alina [] Attends Latter Day of their Alina [] Believes in Prayer [] Reads Bible or Mandaen materials [] There are Spiritual issues to be addressed [employer] Interventions [x] Prayer [] Active listening [] Non-anxious presence [] Spiritual/emotional support [] Crisis/trauma care [] Spiritual counseling [] Bereavement support [] Provided bereavement packet [] Provided Bible/devotional materials [] Provided toy/stuffed animal, coloring book to patient or family member [] Provided Communion [] Anointing/[place] [] Salvation [x] Completed spiritual assessment [] Other: Impact on Illness or Injury [] Angry [] Fearful [] Anxious [] Often cries [] Exhaustion [] Unable to work [] Unable to attend mormon [] Unable to walk/stand [] Unable to read [] Unable to drive [] Unable to eat/drink [] Unable to sleep [] Unable to be with family [] Patient intubated [] Other: Summary Time spent with patient
[2021-01-12] MEDS: zinc gluconate 50 mg Tablet PO (10:38)
[2021-01-12] MEDS: apixaban 5 mg Tablet PO ×2 (10:38→21:12)
[2021-01-12] MEDS: metoprolol tartrate 25 mg Tablet PO ×2 (10:38→21:12)
[2021-01-12] MEDS: ascorbic acid 500 mg Tablet PO (10:38)
--- NOTE | 2021-01-12 10:45 | PC.NURSE ---
Morning meds were administered late. upon initial assessment and medication pass, patient was lethargic, confused, and unable to follow direction to take oral meds. Later in the morning the patient became more alert and was able to take po medications crushed in applesauce.
[2021-01-12 13:07] LABS: Glucose Point of Care 141 mg/dL (70-110)
--- NOTE | 2021-01-12 13:10 | P.PN_ITS ---
Subjective Subjective: Interval history: Patient was seen and examined this morning, continues to require high supplemental oxygen, currently on nonrebreather mask,15Ls Medications: Reviewed: Yes Vitals/I&O/Wt Last Vital Signs Temp 97.8 F 01/12/21 12:00 Pulse 101 H 01/12/21 12:00 Resp 38 H 01/12/21 12:00 BP 112/55 01/12/21 12:00 Pulse Ox 85 L 01/12/21 12:00 01/11/21 01/12/21 01/12/21 22:59 06:59 14:59 Intake Total 0 / 720 Balance 0 / 720 Physical Exam Narrative: EXAM NARRATIVE: Alert and awake Resp: OTHER: Bilateral crackles present in both the lung vincent, right greater than left. Cardio: COMMON NORMALS: regular rate, regular rhythm, S1 normal heart sound present, S2 normal heart sound present, No gallops present (Cardio), No murmurs present (Cardio), No rub (Cardio) and Peripheral pulses 2+ throughout RATE: regular rate RHYTHM: regular rhythm HEART SOUNDS: S1 normal heart sound present and S2 normal heart sound present PERIPHERAL PULSES: Peripheral pulses 2+ throughout GI: COMMON NORMALS: Normal to inspection, nondistended, normoactive bowel sounds present, Soft to palpation, non-tender, No hepatosplenomegaly present and no masses AUSCULTATION: Yes normoactive bowel sounds PALPATION: Yes Soft to palpation and Yes No hepatosplenomegaly present RECTAL EXAM: deferred Extremity: COMMON NORMALS: no clubbing, cyanosis or edema and no pedal edema Data : 01/12/21 05:55 01/12/21 05:55 A&P Assessment and plan (1) Muscle cramps: Status: Acute (2) Pulmonary embolism: Status: Acute (3) Diabetes: Status: Chronic Qualifiers: Diabetes mellitus complication status: with hyperglycemia Diabetes mellitus nursing home insulin use: with watcher automat long goods use Diabetes mellitus type: type 2 Qualified Code(s): E11.65 - Type 2 diabetes mellitus with hyperglycemia; Z79.4 - assisted (current) use of insulin (4) UTI (urinary tract infection): E. coli. Completed 5d of Zosyn Status: Acute Qualifiers: Urinary tract infection type: acute pyelonephritis Qualified Code(s): N10 - Acute pyelonephritis (5) Pneumonia due to COVID-19 virus: Was weaned down to high flow cannula, continues to require 15 L. Wean down as tolerating. Leukocytosis now resolved. Completes course of remdesivir today. Continue Decadron. DC Zosyn, azithromycin. Completed 5 days. Continue DuoNeb as needed. Recheck D-dimer up higher to 5.87. Will request venous duplex studies. Continue prophylactic Lovenox. Recheck D-dimer. Could not reach son today by phone for update. Son's phone number is now updated on facesheet. Son's states she is also listed as emergency contact at the halfway. Her recently . Status: Acute (6) Atrial fibrillation: Status: Chronic Qualifiers: Atrial fibrillation type: unspecified chronic Qualified Code(s): I48.20 - Chronic atrial fibrillation, unspecified (7) Dementia: Status: Chronic Qualifiers: Dementia behavioral disturbance: without behavioral disturbance Dementia type: unspecified type Qualified Code(s): F03.90 - Unspecified dementia without behavioral disturbance Additional A&P Information Persistent hypoxia related to COVID-19 ARDS O2 requirement worsening currently on heated high flow Energy did improve with Ritalin however I am discontinuing because of her tachyarrhythmia Finished remdesivir and Decadron I would keep her on multivitamins for now onwards She has been afebrile, I would not add any antibiotics at this point Daily trials to wean her oxygen down, out of bed to chair, Proning Acute pulmonary embolism Currently on Eliquis Diabetes: Euglycemic UTI status post treatment A. fib with RVR given IV labetalol today Dementia Her hypoactive delirium secondary to COVID-19 has slightly improved with Ritalin however I would not continue this medication As per my discussion with the family at home her p.o. intake was poor she was not very mobile was leading a sedentary lifestyle, would communicate minimally Muscle cramps improved with use of cyclobenzaprine and getting out of bed to chair and physical therapy Disposition plan: She will be discharged to a halfway once O2 requirement is between 4 to 6 L nasal cannula, machine adjuster leader case trim are aware Left a voicemail to the family today when I tried to give them an update DNR/DNI Consistent carb diet Will not need isolation after 5 days will finish 20 days Attestations Medical Necessity Statement*: Patient needs to be in the hospital for management of ARDS Coding Level of Care Code Acute Creel Clerk for Carlg Fwd Diagnoses Muscle cramps R25.2 Pulmonary embolism I26.99 Diabetes E11.65; Z79.4 Diabetes mellitus complication status: with hyperglycemia Diabetes mellitus watcher automat long goods insulin use: with watcher automat long goods use Diabetes mellitus type: type 2 UTI (urinary tract infection) N10 Urinary tract infection type: acute pyelonephritis Pneumonia due to COVID-19 virus U07.1; J12.82 Atrial fibrillation I48.20 Atrial fibrillation type: unspecified chronic Dementia F03.90 Dementia behavioral disturbance: without behavioral disturbance Dementia type: unspecified type
--- NOTE | 2021-01-12 14:54 | PC.RESP ---
RT Shift Note Frequent safety and respiratory rounds continue. Orders completed as indicated. Patient monitored pre and post treatments throughout shift. Patient tolerated treatments appropriately. Condition did not change. Patient and/or district sales representative educated on respiratory treatment and medications. Patient and/or district sales representative verbalized understanding. Will continue to monitor patient progress.
[2021-01-12] MEDS: FUROsemide 10 mg/mL SDV 2mL 20 MG IVP (14:58)
[2021-01-12] MEDS: LORazepam 2 mg/mL INJ 1 mL IVP (15:42)
[2021-01-12 16:57] LABS: Glucose Point of Care 196 mg/dL (70-110)
--- NOTE | 2021-01-12 19:33 | PC.NURSE ---
Late note: Approximately 1530, patient started to get agitated. Heart rate increased to the 130's-140's. Was pulling off oxygen and attempting to remove lines. yelling at staff, but was confused and speech was unintelligible. Nurse alerted Dr gibbons, received an order for ativan. After atican administration, patient became calm. heart rate returned to baseline.
--- NOTE | 2021-01-12 19:36 | PC.NURSE ---
Shift Note Frequent safety and comfort rounds continue. Orders and/or nursing care completed as indicated. Patient monitored for response to intervention and treatment. Bryant started to day and lasix given. Patient had 750 output after the lasix. patient rested in bed most of day, but had an episode of agitation which was resolved with PRN ativan.
[2021-01-12 20:51] LABS: Glucose Point of Care 155 mg/dL (70-110)
[2021-01-12] MEDS: insulin glargine 100 units/1 mL 4 UNIT SUBCUT (21:13)
[2021-01-13] VITALS (13 sets, daily range): BP systolic 112–124; BP diastolic 55–88; PULSE 90–119; RESP 12–36; TEMP 36.5–37.6; O2SAT 88–94
[2021-01-13] MEDS: LORazepam 2 mg/mL INJ 1 mL IVP ×2 (02:02→20:02)
[2021-01-13] MEDS: famotidine 20 mg/2 mL INJ IVP ×2 (03:29→15:37)
[2021-01-13 06:45] LABS: Glucose Point of Care 82 mg/dL (70-110)
--- NOTE | 2021-01-13 08:28 | PC.CHAP ---
Pastoral Care Encounter/Spiritual Assessment Type of Contact [] Declined director stage visit [] Patient/Family/Request visit [] Outpatient visit [] Follow-up visit [] Physician referral [] Code/Alert [x] Routine visit [] Staff referral [] Actively dying [] Patient sleeping [] Family support [] [] Out of room [] Palliative care [] [] Receiving care in room [] Pre-surgical visit [] Trauma [] Long length of stay [] ICU visit [x] Other: 2a sitter Relational/Emotional Strength [] Patient feels connected with others/family/visitors/staff [] Distress [] Loneliness/isolation [] Abandonment Spirituality of Patient [] Person of Alina [] Attends Christianity of their [place]ina [] Believes in Prayer [] Reads Bible or Church materials [] There are Spiritual issues to be addressed Ear Nose And Throat Specialist Interventions [x] Prayer [] Active listening [] Non-anxious presence [] Spiritual/emotional support [] Crisis/trauma care [] Spiritual counseling [] Bereavement support [] Provided bereavement packet [] Provided Bible/devotional materials [] Provided toy/stuffed animal, coloring book to patient or family member [] Provided Communion [] Anointing/[place] [] Salvation [x] Completed spiritual assessment [] Other: Impact on Illness or Injury [] Angry [] Fearful [] Anxious [] Often cries [] Exhaustion [] Unable to work [] Unable to attend anabaptism [] Unable to walk/stand [] Unable to read [] Unable to drive [] Unable to eat/drink [] Unable to sleep [] Unable to be with family [] Patient intubated [] Other: Summary served breakfast... wont feed herself.. still doesnt respond Time spent with patient 5 min
[2021-01-13] MEDS: morphine 4 mg/mL SDV 1 mL 1 MG IVP ×2 (08:50→23:04)
[2021-01-13 11:36] LABS: Glucose Point of Care 81 mg/dL (70-110)
--- NOTE | 2021-01-13 11:59 | PC.NURSE ---
Patient's son updated at this time.
--- NOTE | 2021-01-13 12:06 | PC.SOCIAL ---
IMM Updated Pg 2 of IMM updated. Updated with pt over the phone. Initialed, dated and copy left in chart.
[2021-01-13 16:46] LABS: Glucose Point of Care 72 mg/dL (70-110)
[2021-01-13] MEDS: dextrose 5%-sod chloride 0.9% 1,000 ML 30 ML IV (16:53)
--- NOTE | 2021-01-13 17:54 | PC.NURSE ---
Patient's son Mario is requesting to speak with Dr. Devi about this mom and requests to be called at [phone] after 5:30.
--- NOTE | 2021-01-13 18:07 | PC.NURSE ---
Patient is unable to comprehend how to suck through a straw and if she does get some in her mouth she does not swallow it she holds it in her mouth.
--- NOTE | 2021-01-13 19:07 | PC.NURSE ---
Report to Sissy CRUZ at this time. Patient's son does have permission to visit after work tomorrow.
--- NOTE | 2021-01-13 19:45 | P.PN_ITS ---
Subjective Subjective: Interval history: Patient was seen and examined this morning, continues to require high supplemental oxygen, currently on nonrebreather mask,15Ls Medications: Reviewed: Yes Vitals/I&O/Wt Last Vital Signs Temp 97.7 F 01/13/21 15:53 Pulse 105 H 01/13/21 15:53 Resp 22 H 01/13/21 15:53 BP 114/64 01/13/21 15:53 Pulse Ox 92 01/13/21 15:53 01/13/21 01/13/21 01/13/21 06:59 14:59 22:59 Output Total 260 / 260 150 / 150 Balance -260 / 220 -150 / -150 Physical Exam Narrative: EXAM NARRATIVE: Alert and awake Resp: OTHER: Bilateral crackles present in both the lung vincent, right greater than left. Cardio: COMMON NORMALS: regular rate, regular rhythm, S1 normal heart sound present, S2 normal heart sound present, No gallops present (Cardio), No murmurs present (Cardio), No rub (Cardio) and Peripheral pulses 2+ throughout RATE: regular rate RHYTHM: regular rhythm HEART SOUNDS: S1 normal heart sound present and S2 normal heart sound present PERIPHERAL PULSES: Peripheral pulses 2+ throughout GI: COMMON NORMALS: Normal to inspection, nondistended, normoactive bowel sounds present, Soft to palpation, non-tender, No hepatosplenomegaly present and no masses AUSCULTATION: Yes normoactive bowel sounds PALPATION: Yes Soft to palpation and Yes No hepatosplenomegaly present RECTAL EXAM: deferred Extremity: COMMON NORMALS: no clubbing, cyanosis or edema and no pedal edema Urinary Catheter Management^: Bryant: Cath Placed During This Visit: yes Reason for Continuing Indwelling Catheter: Acute Urinary Retention or Obstruction Urinary Catheter Date of Insertion: 01/12/21 Urinary Catheter Time of Insertion: 16:00 Data : 01/12/21 05:55 01/12/21 05:55 Micro: Microbiology 01/13/21 02:00 Bacterial Antigens - Final Urine,Clean Catch A&P Assessment and plan (1) Muscle cramps: Status: Acute (2) Pulmonary embolism: Status: Acute (3) Diabetes: Status: Chronic Qualifiers: Diabetes mellitus type: type 2 Diabetes mellitus watcher automat long goods insulin use: with watcher automat long goods use Diabetes mellitus complication status: with hyperglycemia Qualified Code(s): E11.65 - Type 2 diabetes mellitus with hyperglycemia; Z79.4 - long term acute care registered nurse (current) use of insulin (4) UTI (urinary tract infection): E. coli. Completed 5d of Zosyn Status: Acute Qualifiers: Urinary tract infection type: acute pyelonephritis Qualified Code(s): N10 - Acute pyelonephritis (5) Pneumonia due to COVID-19 virus: Was weaned down to high flow cannula, continues to require 15 L. Wean down as tolerating. Leukocytosis now resolved. Completes course of remdesivir today. Continue Decadron. DC Zosyn, azithromycin. Completed 5 days. Continue DuoNeb as needed. Recheck D-dimer up higher to 5.87. Will request venous duplex studies. Continue prophylactic Lovenox. Recheck D-dimer. Could not reach son today by phone for update. Son's phone number is now updated on facesheet. Son's states she is also listed as emergency contact at the residential. Her recently . Status: Acute (6) Atrial fibrillation: Status: Chronic Qualifiers: Atrial fibrillation type: unspecified chronic Qualified Code(s): I48.20 - Chronic atrial fibrillation, unspecified (7) Dementia: Status: Chronic Qualifiers: Dementia type: unspecified type Dementia behavioral disturbance: without behavioral disturbance Qualified Code(s): F03.90 - Unspecified dementia without behavioral disturbance Additional A&P Information Persistent hypoxia related to COVID-19 ARDS O2 requirement worsening currently on heated high flow [employer] did improve with Ritalin however I am discontinuing because of her t achyarrhythmia Finished remdesivir and Decadron I would keep her on multivitamins for now onwards She has been afebrile, I would not add any antibiotics at this point Daily trials to wean her oxygen down, out of bed to chair, Proning Acute pulmonary embolism Currently on Eliquis Diabetes: Euglycemic UTI status post treatment A. fib with RVR given IV labetalol today Dementia Her hypoactive delirium secondary to COVID-19 has slightly improved with Ritalin however I would not continue this medication As per my discussion with the family at home her p.o. intake was poor she was not very mobile was leading a sedentary lifestyle, would communicate minimally Muscle cramps improved with use of cyclobenzaprine and getting out of bed to chair and physical therapy Disposition plan: She will be discharged to a residential once O2 requirement is between 4 to 6 L nasal cannula, caseworker protective services are aware Left a voicemail to the family today when I tried to give them an update DNR/DNI Consistent carb diet Will not need isolation after 5 days will finish 20 days Attestations Medical Necessity Statement*: Patient needs to be in the hospital for management of ARDS Coding Level of Care Code Acute Managed Care Manager for [facility] Fwd Diagnoses Muscle cramps R25.2 Pulmonary embolism I26.99 Diabetes E11.65; Z79.4 Diabetes mellitus type: type 2 Diabetes mellitus watcher automat [employer] insulin use: with watcher automat [employer] goods use Diabetes mellitus complication status: with hyperglycemia UTI (urinary tract infection) N10 Urinary tract infection type: acute pyelonephritis Pneumonia due to COVID-19 virus U07.1; J12.82 Atrial fibrillation I48.20 Atrial fibrillation type: unspecified chronic Dementia F03.90 Dementia type: unspecified type Dementia behavioral disturbance: without behavioral disturbance
[2021-01-13] MEDS: metoprolol tartrate 25 mg Tablet PO (20:03)
[2021-01-13] MEDS: apixaban 5 mg Tablet PO (20:03)
[2021-01-14] VITALS (10 sets, daily range): BP systolic 110–127; BP diastolic 70–78; PULSE 68–127; RESP 16–36; TEMP 36.4–36.7; O2SAT 82–93
[2021-01-14] MEDS: morphine 4 mg/mL SDV 1 mL 1 MG IVP ×3 (03:10→13:23)
[2021-01-14] MEDS: famotidine 20 mg/2 mL INJ IVP (03:40)
[2021-01-14] MEDS: LORazepam 2 mg/mL INJ 1 mL IVP ×4 (05:11→18:16)
[2021-01-14 06:12] LABS: Basophils % 0.3 %; Eosinophils # 0.1 10^3/uL (0.0-0.8); Eosinophils % 0.8 %; Hematocrit 32.9 % (37.0-47.0); Hemoglobin 10.3 g/dL (11.5-15.3); Lymphocytes # 1.2 10^3/uL (0.8-4.8); Lymphocytes % 9.1 %; Mean Corpuscular HGB Conc 31.3 g/dL (30.0-36.0); Mean Corpuscular Hemoglobin 28.9 pg (28.0-34.0); Mean Corpuscular Volume 92.2 fl (81-99); Mean Platelet Volume 12.1 fL (7.4-10.4); Monocytes # 0.7 10^3/uL (0.2-0.9); Monocytes % 5.5 %; Neutrophils # 10.89 10^3/uL (1.8-7.7); Neutrophils % 83.9 %; Nucleated Red Blood Cells % 0 %; Platelet Count 304 10^3/cmm (130-400); Red Blood Count 3.57 10^6/uL (4.1-5.3); Red Cell Distribution Width 16.6 % (12.1-15.1)
[2021-01-14 06:17] LABS: Glucose Point of Care 132 mg/dL (70-110)
[2021-01-14 06:33] LABS: Anion Gap 16.2 (5-19); Blood Urea Nitrogen 18 mg/dL (8-23); Calcium 8.5 mg/dL (8.5-10.5); Carbon Dioxide 23 mmol/L (22-29); Chloride 113 mmol/L (98-107); Glucose 113 mg/dL (65-115); Osmolality Calculated 309 mOsm/kg (285-295); Potassium 4.2 mmol/L (3.5-5.1); Sodium 148 mmol/L (136-145)
[2021-01-14] MEDS: dextrose 5% 1,000 ML 50 ML IV ×2 (09:14→11:25)
[2021-01-14 12:02] LABS: Glucose Point of Care 162 mg/dL (70-110)
--- NOTE | 2021-01-14 14:52 | P.PN_ITS ---
Subjective Subjective: Interval history: Patient was seen and examined this morning, continues to require high supplemental oxygen, currently on nonrebreather mask,15Ls, she is having rough day today, constantly removing her mask, requiring increasing dose of sedation. Son was updated about all the developments, he came and visited her.He decided to make her comfort care. Medications: Reviewed: Yes Vitals/I&O/Wt Last Vital Signs Temp 97.9 F 01/14/21 12:00 Pulse 113 H 01/14/21 12:00 Resp 22 H 01/14/21 13:23 BP 119/76 01/14/21 12:00 Pulse Ox 90 01/14/21 13:23 01/13/21 01/14/21 01/14/21 22:59 06:59 14:59 Intake Total 0 / 0 599.167 / 599.167 Output Total 150 / 150 225 / 375 Balance -150 / -150 -225 / -375 599.167 / 599.167 Physical Exam Narrative: EXAM NARRATIVE: Alert and awake Resp: OTHER: Bilateral crackles present in both the lung vincent, right greater than left. Cardio: COMMON NORMALS: regular rate, regular rhythm, S1 normal heart sound present, S2 normal heart sound present, No gallops present (Cardio), No murmurs present (Cardio), No rub (Cardio) and Peripheral pulses 2+ throughout RATE: regular rate RHYTHM: regular rhythm HEART SOUNDS: S1 normal heart sound present and S2 normal heart sound present PERIPHERAL PULSES: Peripheral pulses 2+ throughout GI: COMMON NORMALS: Normal to inspection, nondistended, normoactive bowel sounds present, Soft to palpation, non-tender, No hepatosplenomegaly present and no masses AUSCULTATION: Yes normoactive bowel sounds PALPATION: Yes Soft to palpation and Yes No hepatosplenomegaly present RECTAL EXAM: deferred Extremity: COMMON NORMALS: no clubbing, cyanosis or edema and no pedal edema Urinary Catheter Management^: Bryant: Cath Placed During This Visit: yes Reason for Continuing Indwelling Catheter: Accurate Measurement of Urinary Output in Critically Ill Patients Urinary Catheter Date of Insertion: 01/12/21 Urinary Catheter Time of Insertion: 16:00 Data : 01/14/21 05:20 01/14/21 05:20 A&P Assessment and plan (1) Need for comfort care: Status: Acute (2) Muscle cramps: Status: Acute (3) Pulmonary embolism: Status: Acute (4) Diabetes: Status: Chronic Qualifiers: Diabetes mellitus complication status: with hyperglycemia Diabetes mellitus prison insulin use: with prison use Diabetes mellitus type: type 2 Qualified Code(s): E11.65 - Type 2 diabetes mellitus with hyperglycemia; Z79.4 - nursing home (current) use of insulin (5) UTI (urinary tract infection): E. coli. Completed 5d of Zosyn Status: Acute Qualifiers: Urinary tract infection type: acute pyelonephritis Qualified Code(s): N10 - Acute pyelonephritis (6) Pneumonia due to COVID-19 virus: Was weaned down to high flow cannula, continues to require 15 L. Wean down as tolerating. Leukocytosis now resolved. Completes course of remdesivir today. Continue Decadron. DC Zosyn, azithromycin. Completed 5 days. Continue DuoNeb as needed. Recheck D-dimer up higher to 5.87. Will request venous duplex studies. Continue prophylactic Lovenox. Recheck D-dimer. Could not reach son today by phone for update. Son's phone number is now updated on facesheet. Son's states she is also listed as emergency contact at the alf. Her recently . Status: Acute (7) Atrial fibrillation: Status: Chronic Qualifiers: Atrial fibrillation type: unspecified chronic Qualified Code(s): I48.20 - Chronic atrial fibrillation, unspecified (8) Dementia: Status: Chronic Qualifiers: Dementia behavioral disturbance: without behavioral disturbance Dementia type: unspecified type Qualified Code(s): F03.90 - Unspecified dementia without behavioral disturbance Additional A&P Information Persistent hypoxia related to COVID-19 ARDS O2 requirement worsening currently on heated high flow [employer] did improve with Ritalin however I am discontinuing because of her tachyarrhythmia Finished remdesivir and Decadron I would keep her on multivitamins for now onwards She has been afebrile, I would not add any antibiotics at this point Daily trials to wean her oxygen down, out of bed to chair, Proning Acute pulmonary embolism Currently on Eliquis Diabetes: Euglycemic UTI status post treatment A. fib with RVR given IV labetalol today Dementia Her hypoactive delirium secondary to COVID-19 has slightly improved with Ritalin however I would not continue this medication As per my discussion with the family at home her p.o. intake was poor she was not very mobile was leading a sedentary lifestyle, would communicate minimally Muscle cramps improved with use of cyclobenzaprine and getting out of bed to chair and physical therapy Disposition plan: She will be discharged to a alf once O2 requirement is between 4 to 6 L nasal cannula, nurse outreach case manager are aware Left a voicemail to the family today when I tried to give them an update DNR/DNI Consistent carb diet Will not need isolation after 5 days will finish 20 days Attestations Medical Necessity Statement*: Patient has been made comfort care. Coding Level of Care Code Acute Financial Accounting Manager for g Fwd Exam Expanded Problem Focused Diagnoses Need for comfort care Muscle cramps R25.2 Pulmonary embolism I26.99 Diabetes E11.65; Z79.4 Diabetes mellitus complication status: with hyperglycemia Diabetes mellitus prison insulin use: with prison use Diabetes mellitus type: type 2 UTI (urinary tract infection) N10 Urinary tract infection type: acute pyelonephritis Pneumonia due to COVID-19 virus U07.1; J12.82 Atrial fibrillation I48.20 Atrial fibrillation type: unspecified chronic Dementia F03.90 Dementia behavioral disturbance: without behavioral disturbance Dementia type: unspecified type
[2021-01-14] MEDS: haloperidol inj 5 mg/mL INJ 1 mL IM (16:27)
--- NOTE | 2021-01-14 16:30 | PC.NURSE ---
Patient is on 15 liters non-rebreather and 15 liter high flow and only stating 83%. Patient continues to try and pull off the oxygen so sitter is at bedside. Attempted to call patient's son at this time and left a voicemail.
--- NOTE | 2021-01-14 16:31 | PC.NURSE ---
I reported the low 02n to the nurse and the nurse animal rides manager.
[2021-01-14 17:22] LABS: Glucose Point of Care 222 mg/dL (70-110)
[2021-01-14] MEDS: morphine 4 mg/mL SDV 1 mL 2 MG IVP (18:45)
[2021-01-14] MEDS: morphine 4 mg/mL SDV 1 mL IVP (19:59)
--- NOTE | 2021-01-15 01:03 | PC.NURSE ---
MTS notified and pt is not a candidate for donation.
--- NOTE | 2021-01-15 07:36 | P.DES_ITS ---
Discharge Providers DDS Date of Admission: 12/29/20 19:44 Date Summary Completed: 01/15/21 Attending Provider at Admission: Lauren Stafford MD Time of : 20:18 Attending Provider at Discharge: Don Devi MD Primary Care Provider: Lety Rivera MD DS Diagnoses Hospital Diagnoses (1) Need for comfort care: (2) Muscle cramps: (3) Pulmonary embolism: (4) Diabetes: Qualifiers: Diabetes mellitus complication status: with hyperglycemia Diabetes mellitus terminal computer operator insulin use: with terminal computer operator use Diabetes mellitus type: type 2 Qualified Code(s): E11.65 - Type 2 diabetes mellitus with hyperglycemia; Z79.4 - skilled nursing (current) use of insulin (5) UTI (urinary tract infection): Qualifiers: Urinary tract infection type: acute pyelonephritis Qualified Code(s): N10 - Acute pyelonephritis (6) Pneumonia due to COVID-19 virus: (7) Atrial fibrillation: Qualifiers: Atrial fibrillation type: unspecified chronic Qualified Code(s): I48.20 - Chronic atrial fibrillation, unspecified (8) Dementia: Qualifiers: Dementia behavioral disturbance: without behavioral disturbance Dementia type: unspecified type Qualified Code(s): F03.90 - Unspecified dementia without behavioral disturbance Reason for Visit Reason for Visit: LOW O2 SAT, COVID Summary Date and Time of Date of : 01/14/21 Time of : 20:18 Summary Summary: 80-year-old female with past medical history of atrial fibrillation , congestive heart failure , diabetes , was admitted with chief complaint of worsening shortness of breath, she was admitted for the management of Covid pneumonia. She was kept on Covid protocol (steroids, remdesivir, inhalers, supplemental oxygen, antibiotics) but Unfortunately patient failed to respond to the medical management, respiratory status continued to worsen, She developed ARDS. Family at the end decided to make the patient comfort care. Family wishes were honored. Patient was made comfort care and unfortunately she passed on 14 January at 8:18 PM. During the hospital stay she was also managed for acute pulmonary embolism, diabetes, A. fib with RVR. Additional Data Confirmation of as documented by pronouncing clinician: no pulse, no respirations, no heart sounds and pupils fixed and dilated Family: at bedside Attending/PCP notified?: I am attending Was code activated?: No Autopsy requested?: No Advance directives?: Yes Hospice patient?: No Discharge Plan Discharge Patient Disposition: Condition: Stable Prescriptions: No Action losartan 50 mg tablet 50 mg PO DAILY@0800 RF: 0 metformin 500 mg tablet 500 mg PO BID@0700,1700 RF: 0 acetaminophen 325 mg Tablet 325 mg PO QID PRN (Reason: Pain) RF: 0 atorvastatin 20 mg tablet 20 mg PO DAILY@1700 RF: 0 isosorbide mononitrate 30 mg tablet extended release 24 hr 30 mg PO DAILY@0800 RF: 0 amlodipine 2.5 mg tablet 2.5 mg PO DAILY@0800 RF: 0 mirtazapine 15 mg Tablet 15 mg PO BEDTIME@2000 RF: 0 Humulin 70/30 U-100 KwikPen 100 unit/mL (70-30) insulin pen See Rx Instructions .ROUTE .COMPLEX RF: 0 Lantus Solostar U-100 Insulin 100 unit/mL (3 mL) insulin pen 6 unit SUBCUT DAILY@0700 RF: 0 Referrals: [facility] [Outside] Lety Rivera MD [Primary Care Provider] - Patient Instructions: Opioid Safety Probable Cause of Probable cause of : Cardiac arrest DS Attestations Time Spent in /Discharge Care*: less than 30 min Quality - AMI: AMI present?: No Quality - Stroke: CVA present?: No Symptom Onset Unknown: No Quality - VTE: VTE present?: Yes Deep Vein Thrombosis/Pulmonary Embolism Present on Admission: No Coding Level of Care Code Acute Molecular Geneticist for [facility] Fwd Diagnoses Need for comfort care Muscle cramps R25.2 Pulmonary embolism I26.99 Diabetes E11.65; Z79.4 Diabetes mellitus complication status: with hyperglycemia Diabetes mellitus terminal computer operator insulin use: with fci use Diabetes mellitus type: type 2 UTI (urinary tract infection) N10 Urinary tract infection type: acute pyelonephritis Pneumonia due to COVID-19 virus U07.1; J12.82 Atrial fibrillation I48.20 Atrial fibrillation type: unspecified chronic Dementia F03.90 Dementia behavioral disturbance: without behavioral disturbance Dementia type: unspecified type
== END 2021-01-14 22:30 | disposition expired | DRG 177 ==
LOC: ER 20:06 → MEDSURG 20:33 → MS 2A 12-30 03:41 → MEDSURG 01-13 13:39
PROVIDERS: Internal Medicine; Student in an Organized Health Care Education/Training Program; Admitting Provider Hospitalist; Emergency Provider Emergency Medicine; PCP Family Medicine; Visit Provider Internal Medicine
DX: U07.1 COVID-19 (principal); J12.82 Pneumonia due to coronavirus disease 2019; J80 Acute respiratory distress syndrome; I26.99 Other pulmonary embolism without acute cor pulmonale; I48.20 Chronic atrial fibrillation, unspecified; B02.29 Other postherpetic nervous system involvement; N10 Acute pyelonephritis; E11.65 Type 2 diabetes mellitus with hyperglycemia; F03.90 Unspecified dementia, unspecified severity, without behavioral disturbance, psychotic disturbance, mood disturbance, and anxiety; F41.9 Anxiety disorder, unspecified; I50.9 Heart failure, unspecified; E78.00 Pure hypercholesterolemia, unspecified; F32.9 Major depressive disorder, single episode, unspecified; M35.3 Polymyalgia rheumatica; Z66 Do not resuscitate; Z51.5 Encounter for palliative care; R25.2 Cramp and spasm
CPT/HCPCS: 36415; 36416; 36600; 51702; 70450; 71045; 71275; 80048; 80053; 81001; 82550; 82728; 82803; 82805; 82962; 83605; 83615; 83735; 83880; 84100; 84145; 84484; 85025; 85378; 85384; 85610; 85730; 86140; 86403; 87040; 87077; 87086; 87186; 87205; 87426; 87635; 93005; 93970; 94640; 96365; 96367; 96372; 97110; 97161; 97530; 99285; J0456; J0696; J1100; J1630; J1650; J1815 ×2; J1940; J2060; J2270; J2543; J3490; J7030; J7040; J7050; J7512; J7799; Q9967